=== PATIENT | male | born 1955 | race Caucasian/White ===

== ENCOUNTER 2018-11-10 14:11 | Inpatient (IN) | payer BC ==
[~2018-11-10] VITALS: Ht 188 cm; Wt 86.7 kg
--- OUTSIDE RECORDS SUMMARY | 2018-11-10 14:14 | XMS REPORT ---
Author Author [facility] Address Unknown Phone Unavailable Care Team Providers Care Felling Bucking Supervisor Name Role Phone MARIZA AGEE Unavailable Unavailable Payers Payer Name Policy Type Policy Number Effective Date Expiration Date Problems This patient has no known problems. Allergies, Adverse Reactions, Alerts Allergy Name Allergy Type Status Severity Reaction(s) Onset Date Inactive Date Treating Clinician Comments No Known Allergies DA Active U 2018-06-29 00:00:00 Medications This patient has no known medications. Results Test Description Test Time Test Comments Text Results Atomic Results Result Comments CT ABDOMEN/PELVIS WO [place] [address] Patient Name: FELTON TRAN MR #: [id number] : 1955 Age/Sex: 61/M Req #: [id number] Adm Physician: Ordered by: MARIZA AGEE DO Report #: [id number] Location: CT Room/Bed: Procedure: [id number] CT/CT ABDOMEN/PELVIS WO Exam Date: 07/01/17 Exam Time: 1214 REPORT STATUS: Signed PROCEDURE: CT ABDOMEN AND PELVIS WITHOUT CONTRAST TECHNIQUE: The abdomen and pelvis were scanned utilizing a multidetector helical scanner from the diaphragm to the lesser trochanter after the oral administration of dilute Gastrografin. No IV contrast was administered per physician's request. Coronal and sagittal multiplanar reformations were obtained. COMPARISON: None. INDICATIONS: ANEMIA FINDINGS: ABSENCE OF INTRAVENOUS CONTRAST DECREASES SENSITIVITY FOR DETECTION OF FOCAL LESIONS AND VASCULAR PATHOLOGY. LOWER THORAX: Lung bases are clear. Atherosclerotic calcification of the coronary arteries and to a lesser degree thoracic aorta. Small hiatal hernia. Mild circumferential thickening of the distal esophagus (series 2, image 2). HEPATOBILIARY: Diffuse hepatic steatosis. Normal contour. The liver is enlarged, measuring 22 cm in the right midclavicular line. No focal lesions. No biliary ductal dilation. Gallbladder is unremarkable. SPLEEN: Mild splenomegaly, measuring 13.9 cm in AP diameter. PANCREAS: No focal masses or ductal dilatation. ADRENALS: No adrenal nodules. KIDNEYS/URETERS: 2 mm nonobstructing calculus in the mid to inferior aspect of the right kidney (series 2, image 38). No other renal or any ureteral calculi. No hydronephrosis or obstruction. Approximately 2.7 x 2.7 cm fluid density lesion in the lateral interpolar region of the left kidney (series 2 image 38), likely representing a simple cyst. Mild bilateral perinephric stranding. PELVIC ORGANS/BLADDER: Bladder is decompressed, but grossly unremarkable. Prostate is unremarkable. Calcification of the vas deferens. PERITONEUM / RETROPERITONEUM: No free air or fluid. LYMPH NODES: No intra-abdominal, retroperitoneal, pelvic, or inguinal adenopathy. VESSELS: Atherosclerotic calcification of the abdominal aorta and iliac vessels. GI TRACT: No bowel dilation or evidence of obstruction. Prominent fat at the ileocecal valve, likely reflecting lipomatous hypertrophy. Moderate wall thickening involving the ascending and proximal to mid transverse colon, without significant surrounding inflammatory changes. Mild circumferential wall thickening is noted throughout the descending and sigmoid colon, however, the bowel is not fully distended. No intraluminal masses. Scattered diverticula in the ascending, transverse, descending colon, without evidence of diverticulitis. BONES AND SOFT TISSUES: No acute bony abnormalities. Mild degenerative disc changes in the lower lumbosacral spine. Soft tissues are grossly unremarkable. IMPRESSION: 1. moderate wall thickening involving the ascending and proximal to mid transverse colon. Mild circumferential wall thickening noted throughout the descending and sigmoid colon. Although this may be partly due to under distention, other entities such as sequela of inflammatory bowel disease could be considered. No surrounding inflammatory changes are noted in the colon to suggest active infectious or inflammatory colitis. 2. Colonic diverticulosis, without diverticulitis. 3. 2 mm nonobstructing calculus in the mid to inferior aspect of the right kidney. 4. Hepatomegaly with diffuse steatosis. No focal lesions. 5. Mild splenomegaly. Garcia Rice M.D. Dictated by: Garcia Rice M.D. on 07/01/2017 at 13:08 Electronically approved by: Garcia Rice M.D. on 07/01/2017 at 13:08 Dictated By: GARCIA RICE MD 1308 Transcribed By: AVINASH on 07/01/17 1308 COPY TO: MARIZA AGEE DO
[2018-11-10] MEDS ORDERED: SODIUM CHLORIDE 0.9% 1000ML 1,000 ML IV STA (15:45)
[2018-11-10 15:53] LABS: BASOPHILS % 0.3 % (0.0-1.0); EOSINOPHILS # (AUTO) 0.1 (0.0-0.4); HEMATOCRIT 24.4 % (38.2-49.6); HEMOGLOBIN 8.5 g/dL (14.0-18.0); LYMPHOCYTES # (AUTO) 1.6 (1.0-3.2); LYMPHOCYTES % 13.1 % (18.0-39.1); MEAN CORPUSCULAR HEMOGLOBIN 37.1 pg (28-32); MEAN CORPUSCULAR HGB CONC 34.8 g/dL (31-35); MEAN CORPUSCULAR VOLUME 106.6 fL (81-99); MONOCYTES # (AUTO) 0.7 (0.2-0.8); MONOCYTES % 5.6 % (4.4-11.3); NEUTROPHILS % 75.9 % (38.7-80.0); RED BLOOD COUNT 2.29 x10e6/uL (4.3-5.7); RED CELL DISTRIBUTION WIDTH 14.7 % (11.7-14.4)
[2018-11-10 15:54] LABS: PLATELET COUNT 92 x10e3/uL (140-360)
[2018-11-10 15:58] LABS: INR 1.06; PARTIAL THROMBOPLASTIN TIME 33.9 seconds (23.8-35.5); PROTHROMBIN TIME 14.8 seconds (11.9-14.5)
[2018-11-10 16:06] LABS: ALANINE AMINOTRANSFERASE 21 IU/L (0-55); ALBUMIN 3.3 g/dL (3.5-5.0); ALBUMIN/GLOBULIN RATIO 0.8 (0.8-2.0); ALKALINE PHOSPHATASE 216 IU/L (40-150); ANION GAP 24.7 mmol/L (8-16); BLOOD UREA NITROGEN 18 mg/dL (7-26); BUN/CREATININE RATIO 19 (6-25); CALCIUM 9.8 mg/dL (8.4-10.2); CARBON DIOXIDE 17 mmol/L (22-29); CHLORIDE 92 mmol/L (98-107); CREATININE, SERUM 0.95 mg/dL (0.72-1.25); EST GLOMERULAR FILTRATION RATE > 60 ML/MIN (60-); GLUCOSE 93 mg/dL (74-118); LIPASE 188 U/L (8-78); POTASSIUM 3.7 mmol/L (3.5-5.1); SODIUM 130 mmol/L (136-145)
[2018-11-10 16:29] LABS: CREATINE KINASE < 7 IU/L (30-200)
--- NOTE | 2018-11-10 16:48 | Diagnostic Imaging Report ---
A single frontal view of the chest. HISTORY: Nausea, vomiting, weakness, cough COMPARISON: None available. DISCUSSION: Portable technique, limits sensitivity of the exam. The right apex is not entirely included. Multiple overlying monitoring leads. Tubes/Lines: None Lungs and pleura: Mildly low lung volumes result in bibasilar vascular crowding, accentuation of the pulmonary interstitial markings, central pulmonary vasculature, and the cardiac silhouette. Allowing for these limitations, the findings are as follows: No evidence of a consolidative pneumonia or pulmonary alveolar edema. No definite pleural effusion or pneumothorax is identified. Heart and mediastinum: The cardiomediastinal silhouette appears unremarkable. Bones and soft tissues: Appear unremarkable, given this limited exam. IMPRESSION: No acute radiographic abnormality. Signed by: Dr. Lennox Whitney D.O., M.M.M. on 11/10/2018 4:45 PM
[2018-11-10] MEDS ORDERED: SODIUM CHLORIDE 0.9% 1000ML 1,000 ML IV SCH ×3 (16:53→20:30)
[2018-11-10] MEDS ORDERED: LORAZEPAM INJ 2 MG/ML VIAL IV ONE (17:00)
[2018-11-10] MEDS ORDERED: MULTIVITAMINS- 12 INJECTION 10 ML, FOLIC ACID MDV 5 MG, THIAMINE HCL INJ 100 MG in SODI... IV ONE (17:00)
--- NOTE | 2018-11-10 17:08 | NUR ---
IV SITE CLEANED AND RE-TAPED
--- NOTE | 2018-11-10 18:12 | NUR ---
pt straight cath'd for urine sample per Dr Choe @ [id number]
[2018-11-10 18:25] LABS: CLARITY,URINE CLOUDY (CLEAR); COLOR,URINE AMBER (YELLOW); KETONES,URINE 1+ (NEGATIVE); LEUKOCYTE ESTERASE ,URINE NEGATIVE (NEGATIVE); NITRITE,URINE POSITIVE (NEGATIVE); PROTEIN,URINE DIPSTICK 1+ (NEGATIVE); URINE UROBILINOGEN 8 mg/dL (0.2 - 1)
[2018-11-10 18:26] LABS: BILIRUBIN,URINE 3+ (NEGATIVE)
[2018-11-10 18:39] LABS: AMORPHOUS SEDIMENT,URINE MODERATE (FEW); BACTERIA,URINE MODERATE /HPF
[2018-11-10] MEDS ORDERED: SODIUM CHLORIDE 0.9% 50ML 50 ML ONE (19:51)
[2018-11-10] MEDS ORDERED: IOPAMIDOL 370 MG/ML 200 ML INFUS..BTL INJ ONE (19:51)
[2018-11-10] MEDS: CEFTRIAXONE SOD 1 GM/NS 50 ML 50 ML IV SCH (19:54)
[2018-11-10 20:00] VITALS: BP 116/59
--- NOTE | 2018-11-10 20:15 | Diagnostic Imaging Report ---
EXAM: CT Abdomen and Pelvis WITH contrast INDICATION: Nausea COMPARISON: None. TECHNIQUE: Abdomen and Pelvis was scanned utilizing a multidetector helical scanner after administration of IV contrast. Coronal and sagittal reformations were obtained. IV CONTRAST: 100 mL Isovue-370 COMPLICATIONS: None RADIATION DOSE: Total DLP:789 mGy*cm Estimated effective dose: (DLP x 0.015 x size factor) mSv CTDIvol has been reviewed. It is below the limits set by the Radiation Protocol Committee (RPC). Appropriate CT dose reduction techniques were utilized. FINDINGS: Abdomen: Lung Bases: No acute findings. Solid Organs: Mild hepatic steatosis. Calcified gallstones. Best seen on coronal images is ill-defined stranding about the superior and inferior right kidney. Tiny nonobstructing calculus present in the right kidney with no ureteral calculus identified. There is a 26 mm hypodense lesion left kidney with Hounsfield units 17 and mild surrounding stranding. Smaller hypodensity superior left kidney too small to characterize. Solid organs otherwise unremarkable. Upper GI Tract: Moderate hiatal hernia with some herniation of mesenteric fat into the chest. Vascularity: Vascular calcifications with no aneurysm aorta. Lymph Nodes: No suspicious adenopathy. Other: None. Pelvis: Bladder: Decompressed limiting evaluation. Other: Vasectomy clips partially visualized. Colon: Scattered areas of wall thickening in the colon likely decompression. Correlation with age appropriate colonoscopy recommended, however. Appendix not inflamed. Bones: No acute findings. IMPRESSION: 1. 26 mm indeterminate lesion left kidney. Follow-up renal ultrasound recommended. 2. Nonobstructing calculus right kidney. 3. Mild perinephric stranding may be senescent. Infectious process not excluded. Clinical and laboratory correlation recommended. 4. Cholelithiasis with no distinct CT evidence of cholecystitis. 5. Moderate hiatal hernia. 6. Other findings as above. Signed by: Dr. Toni Bower MD on 11/10/2018 8:11 PM
[2018-11-10 20:44] VITALS: BP 116/59
--- NOTE | 2018-11-10 20:44 | NUR ---
PT ARRIVING ON UNIT VIA STRETCHER WITH FAMILY AT SIDE, ALERT AND ORIENTED, NO DISTRESS NOTED, DENIES NEEDS, IV INFUSING PER ORDER, CALL LIGHT IN REACH, INSTRUCTED TO CALL WITH NEEDS, TELEMETRY NOTED, URINAL IN REACH
[2018-11-10 21:00] VITALS: BP 116/59
[2018-11-11] VITALS (7 sets, daily range): BP systolic 95–130; BP diastolic 60–72
[2018-11-11 06:58] LABS: BASOPHILS % 0.5 % (0.0-1.0); EOSINOPHILS # (AUTO) 0.1 (0.0-0.4); EOSINOPHILS % 1.4 % (0.0-6.0); LYMPHOCYTES # (AUTO) 0.8 (1.0-3.2); LYMPHOCYTES % 19.3 % (18.0-39.1); MEAN CORPUSCULAR HEMOGLOBIN 36.3 pg (28-32); MEAN CORPUSCULAR HGB CONC 34.1 g/dL (31-35); MEAN CORPUSCULAR VOLUME 106.3 fL (81-99); MONOCYTES # (AUTO) 0.4 (0.2-0.8); MONOCYTES % 9.2 % (4.4-11.3); NEUTROPHILS # (AUTO) 2.8 (2.1-6.9); NEUTROPHILS % 67.2 % (38.7-80.0)
[2018-11-11 07:07] LABS: HEMOGLOBIN 5.8 g/dL (14.0-18.0); PLATELET COUNT 48 x10e3/uL (140-360)
[2018-11-11 07:23] LABS: ALANINE AMINOTRANSFERASE 14 IU/L (0-55); ALBUMIN 2.4 g/dL (3.5-5.0); ALBUMIN/GLOBULIN RATIO 0.9 (0.8-2.0); ALKALINE PHOSPHATASE 148 IU/L (40-150); ANION GAP 18.3 mmol/L (8-16); BLOOD UREA NITROGEN 15 mg/dL (7-26); BUN/CREATININE RATIO 19 (6-25); CARBON DIOXIDE 19 mmol/L (22-29); CHLORIDE 96 mmol/L (98-107); CREATININE, SERUM 0.81 mg/dL (0.72-1.25); EST GLOMERULAR FILTRATION RATE > 60 ML/MIN (60-); GLUCOSE 63 mg/dL (74-118); PHOSPHORUS 2.7 MG/DL (2.3-4.7); POTASSIUM 3.3 mmol/L (3.5-5.1); SODIUM 130 mmol/L (136-145)
--- NOTE | 2018-11-11 07:43 | NUR ---
Received call from lab to report critical hgb 5.8 and mag level 1.0. These results are a redraw. Pt denies any bleeding in stool and urine. No bleeding noted at this time during physical assessment. Denies any shortness of breath. Abdomen is soft and nontender. V/S 111/66 P-95(SR) T-97.5, R-18 O2 sat-98. Dr. Smith has been paged and waiting for call back at this time. Pt states he noted bloody stool last month.
[2018-11-11] MEDS ORDERED: SODIUM CHLORIDE 0.9% 250ML 250 ML IV ONE (08:00)
[2018-11-11] MEDS ORDERED: MAGNESIUM SULFATE 2GM/50ML 50 ML IV ONE (08:30)
--- NOTE | 2018-11-11 08:30 | NUR ---
Spoke with Dr. Smith and received orders to transfuse 2units PRBC and give mag 2g iv x1.
[2018-11-11 08:49] LABS: ANISOCYTOSIS SLIGHT; HYPOCHROMASIA MARKED; PLATELET ESTIMATE MARKEDLY DECREASED; PLATELET MORPHOLOGY COMMENT NORMAL; RBC MORPHOLOGY COMMENT NORMAL
[2018-11-11 08:50] LABS: TOXIC GRANULATION SLIGHT
[2018-11-11] MEDS ORDERED: MULTIVITAMINS- 12 INJECTION 10 ML, FOLIC ACID MDV 5 MG, THIAMINE HCL INJ 100 MG in SODI... IV ONE ×2 (09:00→10:45)
[2018-11-11 09:40] LABS: IRON 95 ug/dL (65-175); TRANSFERRIN < 70 mg/dL (174-364)
[2018-11-11 10:01] LABS: FREE THYROXINE INDEX 1.8581 (1.4-3.8); THYROID STIMULATING HORMONE 2.518 uIU/mL (0.350-4.940)
[2018-11-11 11:26] LABS: % IRON SATURATION 116 % (15-50); TOTAL IRON BINDING CAPACITY 83 ug/dL (261-478)
--- NOTE | 2018-11-11 11:48 | Diagnostic Imaging Report ---
EXAMINATION: Renal ultrasound. CLINICAL HISTORY :Pancreatitis COMPARISON: <None available.> TECHNIQUE: Grayscale and color Doppler evaluation of the kidneys and bladder was performed in transverse and longitudinal planes. DISCUSSION: RIGHT KIDNEY: The right kidney measures 12.5 cm in length and shows normal echogenicity. No hydronephrosis. 0.4 cm echogenic focus with shadowing interpolar region. No cyst or solid mass. LEFT KIDNEY: The left kidney measures 4.9 cm in length and shows normal echogenicity. No hydronephrosis or calculi. No mass. 3 cm interpolar simple cyst and 0.8 cm simple interpolar cyst. BLADDER: Unremarkable. IMPRESSION: 1. Normal renal echogenicity. No obstruction 2. Right renal 0.4 cm calculus 3. Simple left renal cyst. Signed by: Dr. Fran Montero M.D. on 11/11/2018 11:45 AM
--- NOTE | 2018-11-11 13:26 | Consultation ---
DATE OF CONSULTATION: November 11, 2018 HEMATOLOGY-ONCOLOGY CONSULTATION REQUESTING PHYSICIAN: Dr. Don Smith. HISTORY OF PRESENT ILLNESS: Mr. Bailon is a 62-year-old male who was referred to me for evaluation of anemia. The patient claims that he had hematochezia approximately two months back. The patient presents with weakness, shortness of breath, slight confusion. HISTORY OF PAST ILLNESS: The patient is very well known to me since July 05, 2017, when the patient was referred to me by Dr. Ap Gilman for evaluation of low platelet count. CBC dated June 29, 2017, showed a hemoglobin of 13.1, white count of 6400, platelets of 85,000, bilirubin high at 3.4, SGOT high at 69. Patient claims that he had "slight anemia of the counts." A CAT scan dated July 01, 2017, showed moderate wall thickening involving the ascending and proximal transverse colon, colonic diverticulosis, a 2 mm nonobstructing calculus, hepatomegaly with diffuse steatosis. There were no focal lesions. Subsequently the patient was suggested to change the social behavior as he was heading toward cirrhosis. The patient related that he used to drink "a fifth a day." I had also suggested the possibility of bone marrow. I had personally called Dr. Viktoria Smith for EGD as I suspected cirrhosis and a colonoscopy due to abnormal CAT scan findings. I do not think the patient had shown up. The patient was due to come back to my office on July 08, 2017. However, when the staff called that he needs to come in or to reschedule, he said, "Things came up. I will call back." At that time the staff requested for the patient to schedule in two weeks. Patient declined the rescheduling. SOCIAL HISTORY: History of excessive alcohol intake. FAMILY HISTORY: Noncontributory. ALLERGIES REPORTED: NONE. MEDICATIONS: At this time, IV fluids. REVIEW OF SYSTEMS HEENT: Normal. CARDIAC: Normal. RESPIRATORY: Normal. GASTROINTESTINAL: Cirrhotic liver. Gallstones. GENITOURINARY: Normal. MUSCULOSKELETAL: Normal. SKIN AND BREASTS: Normal. NEUROENDOCRINE: Essentially normal. PHYSICAL EXAMINATION GENERAL: A moderately built male, very anemic, very jaundiced. No palpable adenopathy. HEART: Tachycardic. LUNGS: Clear. SKIN: The patient has spider angioma. ABDOMEN: Obese. RECTAL: Deferred. CENTRAL NERVOUS SYSTEM: Essentially normal. LABS: Sodium 130, potassium 3.3, chloride is 96, CO2 19, BUN 15, creatinine 0.8, glucose 53. Hemoglobin of 5.8, hematocrit of around 17, white count of 4150, platelets of 48. INR 1.06. Bilirubin 4.1, SGOT 41, SGPT 14, alkaline phosphatase 148. IMPRESSION 1. Anemia, megaloblastic (mean corpuscular volume 106.6). 2. Thrombocytopenia. 3. Hyponatremia (130). 4. Hypokalemia (3.3). 5. Hyperbilirubinemia (5.8). 6. Hypoalbuminemia (3.3). 7. 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 8. Hypocalcemia (8.0). 9. Lactic acidosis (32.8). 10. Calculus of the right kidney. 11. Gallstones. 12. Hiatus hernia. 13. Hepatic steatosis, suspect cirrhosis. 14. Hepatic encephalopathy with a high ammonia more than 100. PLAN, COMMENTS AND SUGGESTIONS: Suggest blood. Suggest EGD, colonoscopy. Suggest change in behavior. This was discussed at length with the patient, the and the son. I will confine myself to hematology-oncology. Job#: [id number] EV cc:MD VIKTORIA ARORA MD DONALD METZ, DO
[2018-11-11] MEDS ORDERED: SODIUM CHLORIDE 0.9% 250ML 250 ML ONE (13:36)
[2018-11-11] MEDS: LORAZEPAM INJ 2 MG/ML VIAL IV PRN ×2 (13:50→21:55)
--- NOTE | 2018-11-11 15:37 | NUR ---
Nutrition Intervention Note RD Recommendation(s) for Physician: -Continue cardiac diet as ordered -Rec Ensure compact BID due to hx of weight loss Plan of Care: RD following, monitoring for tolerance and adequacy, ONS rec Nutrition reason for involvement: Nutrition Risk Trigger MST RD Assessment 11/11 Chart reviewed. 62yo M, who is admitted for anemia. Visited pt in the room. Per , pt has been eating very little for the last 3 weeks. Pt reported UBW ~240lbs 2 years ago and continued to lose weight. Unknown # in weight loss. No GI complains at this time. LBM 11/09. RN recorded 75-100% meal intake since admission. Pt denied any chewing or swallowing issue. Will continue to monitor and follow. Principal Problems/Diagnoses: anemia, thrombocytopenia PMH: excessive alcohol intake GI: abdomen soft, non-tender, LBM 11/09 Skin: intact, jaundice Labs: (11/11) Na 130 L, K 3.3 L, Glucose 63 L, Ca 8.0 L, Mg 1.0 L Meds: MVi, folic acid, thiamine, IVF Ht: 74in Wt: 188lb BMI: 24.1kg/m2 IBW: 190lb Malnutrition Evaluation (11/11/2018) The patient does not meet criteria for a specified degree of malnutrition at this time. Will re-evaluate at follow-up as appropriate. Energy intake: <75% of estimated energy requirements for >1 month Weight loss: Lost weight, unknown # in long period of time Fat loss: some clavicle protrusion Muscle loss: None Supporting Evidence: Fluid accumulation: unable to evaluate Functional Status: no changes Nutrition Prescription (Diet Order): cardiac diet Estimated Nutritional Needs: Calories: 2150 2580kcal(25-30kcal/kg/d) Weight used: Current BW Protein: 86 129g (1-1.5g/kg/d) Weight used: Current BW Diet Adequacy: N/A Diet Education Needs Assessment: Diet education not indicated; patient on regular diet. Nutrition Care Level: low Nutrition Diagnosis: Unintended weight loss related to chronic illness as evidenced by pt reported of UBW ~240lb about 2 years ago and continues to lose weight. Goal: Patient will meet 75-100% of estimated needs by follow up Progress: N/A Interventions: Mineral modified diet, Commercial beverage, Multivitamin/mineral supplement therapy Monitoring/Evaluation: Total energy intake, Total protein intake, Modified diet, Liquid supplement, Weight change Signed: Yulisa Smith, MS, RD, LD
[2018-11-11] MEDS: LACTULOSE SYRUP 20 GM/30 ML UDC PO SCH (17:31)
--- NOTE | 2018-11-11 18:45 | NUR ---
Pt transferred to room 102 and report given to nurse that will be receiving pt.
--- NOTE | 2018-11-11 19:20 | NUR ---
PATIENT RECEIVED. PATIENT IS RESTING IN BED, AAOX3. RESP EVEN AND UNLABORED. NO ACUTE DISTRESS NOTED. PATIENT DENIES OF ANY PAIN OR DISCOMFORT. FAMILY AT BED SIDE. TELE IN PLACE. CALL LIGHT WITHIN REACH. INSTRUCT TO CALL FOR ASSISTANCE. BED LOW/LOCKED. CONTINUE TO MONITOR CLOSELY
--- NOTE | 2018-11-11 20:10 | NUR ---
ASSISTED PATIENT TO RESTROOM VIA WHEELCHAIR.STOOL SAMPLE COLLECTED. HELP PATIENT BACK TO BED. BED ALARM IS ON. CONTINUE TO MONITOR CLOSELY
[2018-11-11] MEDS: CEFTRIAXONE SOD 1 GM/NS 50 ML 50 ML IV SCH (20:23)
[2018-11-11] MEDS ORDERED: PROPRANOLOL HCL 10 MG TAB PO ONE (22:45)
[2018-11-12] VITALS (10 sets, daily range): BP systolic 96–131; BP diastolic 59–76
--- NOTE | 2018-11-12 01:15 | NUR ---
RESPONDED TO BED ALARM. PATIENT WAS USING URINAL AND WET HIMSELF. CHANGE PATIENT AND ASSISTED PATIENT BACK TO BED. OFFERED PATIENT DIAPER BUT PATIENT REFUSED. BED ALARM IS ON. BED LOW/LOCKED. CONTINUE TO MONITOR CLOSELY
--- NOTE | 2018-11-12 01:30 | NUR ---
RESPONDED TO BED ALARM. FOUND PATIENT WAS SITTING ON THE FLOOR. NO INJURY NOTED. ASSISTED PATIENT BACK TO BED. VITAL STABLE TEMP. 96, BP 126/71, HR 76, RR 18, O2 SAT 100%. PATIENT WAS CONFUSED AND DID NOT KNOW WHERE HE WAS. BED ALARM IS ON. SIDE RAIL UP X3.
--- NOTE | 2018-11-12 01:45 | NUR ---
CALLED DR Mine AAMDOR, AWAITING FOR MD TO CALL BACK. NOTIFIED DR Sunni AMADOR. MD ORDERED PRN SITTER. NOTIFIED CHARGE NURSE AND AUTOMATIC SERGING MACHINE OPERATOR
--- NOTE | 2018-11-12 02:00 | NUR ---
NOTIFIED DAUGHTER LOUIE NEIGHBORS ABOUT PATIENT'S STATUS. DAUGHTER SAID SHE WOULD COME VISIT PATIENT TODAY
--- NOTE | 2018-11-12 03:20 | NUR ---
DR DOYLE RETURNED CALL. NO NEW ORDER RECEIVED
--- NOTE | 2018-11-12 04:45 | NUR ---
PATIENT RESTING QUIETLY IN BED. RESP EVEN AND UNLABORED. NO ACUTE DISTRESS NOTED. SITTER AT BED SIDE. CONTINUE MONITOR CLOSELY
[2018-11-12 05:44] LABS: BASOPHILS % 0.7 % (0.0-1.0); LYMPHOCYTES # (AUTO) 0.6 (1.0-3.2); MEAN CORPUSCULAR HEMOGLOBIN 35.7 pg (28-32); MEAN CORPUSCULAR HGB CONC 35.9 g/dL (31-35); MEAN CORPUSCULAR VOLUME 99.5 fL (81-99); MONOCYTES # (AUTO) 0.3 (0.2-0.8); MONOCYTES % 11.4 % (4.4-11.3); NEUTROPHILS # (AUTO) 1.8 (2.1-6.9); NEUTROPHILS % 61.4 % (38.7-80.0); RED BLOOD COUNT 1.96 x10e6/uL (4.3-5.7); RED CELL DISTRIBUTION WIDTH 18.7 % (11.7-14.4)
[2018-11-12 05:51] LABS: HEMATOCRIT 19.5 % (38.2-49.6); PLATELET COUNT 46 x10e3/uL (140-360)
[2018-11-12 06:01] LABS: ANION GAP 14.1 mmol/L (8-16); BLOOD UREA NITROGEN 10 mg/dL (7-26); BUN/CREATININE RATIO 14 (6-25); CALCIUM 8.2 mg/dL (8.4-10.2); CARBON DIOXIDE 20 mmol/L (22-29); CHLORIDE 102 mmol/L (98-107); CREATININE, SERUM 0.71 mg/dL (0.72-1.25); EST GLOMERULAR FILTRATION RATE > 60 ML/MIN (60-); GLUCOSE 88 mg/dL (74-118); POTASSIUM 3.1 mmol/L (3.5-5.1); SODIUM 133 mmol/L (136-145)
[2018-11-12 07:45] LABS: LYMPHOCYTES % (MANUAL) 23 % (19-48); MONOCYTES % (MANUAL) 10 % (3.4-9.0); NEUTROPHILS % (MANUAL) 67 % (40-74); PLATELET ESTIMATE MODERATELY DECREASED; PLATELET MORPHOLOGY COMMENT NORMAL; RBC MORPHOLOGY COMMENT NORMAL
[2018-11-12] MEDS: PROPRANOLOL HCL 10 MG TAB PO SCH ×2 (09:00→17:27)
[2018-11-12] MEDS: MULTIVITAMINS- 12 INJECTION 10 ML, FOLIC ACID MDV 5 MG, THIAMINE HCL INJ 100 MG in SODI... IV SCH ×2 (09:08→21:00)
[2018-11-12] MEDS: LACTULOSE SYRUP 20 GM/30 ML UDC PO SCH ×2 (09:47→17:26)
[2018-11-12] MEDS ORDERED: POTASSIUM CHLORIDE 10MEQ EA PO ONE ×2 (12:00→14:00)
[2018-11-12] MEDS ORDERED: POTASSIUM CHLORIDE 20 MEQ TAB CR PO ONE (12:30)
--- NOTE | 2018-11-12 20:00 | NUR ---
Received change of shift report from AM nurse. Walking rounds completed.
[2018-11-12] MEDS: CEFTRIAXONE SOD 1 GM/NS 50 ML 50 ML IV SCH (20:55)
[2018-11-13] VITALS (7 sets, daily range): BP systolic 107–134; BP diastolic 68–81
--- NOTE | 2018-11-13 01:00 | NUR ---
Dr Smith on the floor to see patient. Orders received for npo after breakfast.
--- NOTE | 2018-11-13 05:00 | NUR ---
IV leaking, restarted 22G to right hand. x1 stick. Patient tolerated well.
--- NOTE | 2018-11-13 06:05 | NUR ---
Patient resting quitly in bed with no c/o at this time. Continue monitor.
[2018-11-13 06:07] LABS: BASOPHILS % 0.6 % (0.0-1.0); EOSINOPHILS % 1.2 % (0.0-6.0); LYMPHOCYTES # (AUTO) 0.7 (1.0-3.2); LYMPHOCYTES % 21.1 % (18.0-39.1); MEAN CORPUSCULAR HGB CONC 33.5 g/dL (31-35); MEAN CORPUSCULAR VOLUME 104.5 fL (81-99); MONOCYTES # (AUTO) 0.4 (0.2-0.8); MONOCYTES % 11.1 % (4.4-11.3); NEUTROPHILS # (AUTO) 2.1 (2.1-6.9); NEUTROPHILS % 63.6 % (38.7-80.0); RED CELL DISTRIBUTION WIDTH 19.3 % (11.7-14.4)
[2018-11-13 06:11] LABS: PLATELET COUNT 43 x10e3/uL (140-360)
[2018-11-13 06:12] LABS: HEMATOCRIT 20.9 % (38.2-49.6)
[2018-11-13] MEDS ORDERED: PEG (High)/E-LYTE SOLN 4,000 ML BTL PO ONE ×3 (06:30→17:15)
[2018-11-13 06:33] LABS: ALANINE AMINOTRANSFERASE 27 IU/L (0-55); ALBUMIN 2.4 g/dL (3.5-5.0); ALBUMIN/GLOBULIN RATIO 0.8 (0.8-2.0); ALKALINE PHOSPHATASE 179 IU/L (40-150); ANION GAP 13.7 mmol/L (8-16); BLOOD UREA NITROGEN 7 mg/dL (7-26); BUN/CREATININE RATIO 10 (6-25); CALCIUM 8.5 mg/dL (8.4-10.2); CARBON DIOXIDE 19 mmol/L (22-29); CHLORIDE 106 mmol/L (98-107); CREATININE, SERUM 0.73 mg/dL (0.72-1.25); EST GLOMERULAR FILTRATION RATE > 60 ML/MIN (60-); GLUCOSE 99 mg/dL (74-118); POTASSIUM 3.7 mmol/L (3.5-5.1); SODIUM 135 mmol/L (136-145)
--- NOTE | 2018-11-13 07:02 | NUR ---
Received patient mid fowlers position, side rails upx2, call light within reach, daughter at bedside. Resting with eyes close. Arousable to verbal stimuli. Respirations even and unlabored. Will continue to monitor.
[2018-11-13] MEDS ORDERED: SODIUM CHLORIDE 0.9% 250ML 250 ML ONE ×3 (09:11→15:29)
[2018-11-13] MEDS: PROPRANOLOL HCL 10 MG TAB PO SCH ×2 (09:23→17:00)
[2018-11-13] MEDS: CEFTRIAXONE SOD 1 GM/NS 50 ML 50 ML IV SCH ×2 (09:23→21:31)
[2018-11-13] MEDS ORDERED: MORPHINE SULFATE INJ 4 MG/ML INJ 1ML IV ONE (11:00)
[2018-11-13] MEDS: LACTULOSE SYRUP 20 GM/30 ML UDC PO SCH ×2 (11:19→17:00)
[2018-11-13] MEDS ORDERED: FUROSEMIDE INJ 10 MG/ML 4 ML VIAL IV ONE (11:30)
[2018-11-13] MEDS ORDERED: SODIUM CHLORIDE 0.9% 250ML 250 ML IV ONE (11:30)
[2018-11-13] MEDS: MULTIVITAMINS- 12 INJECTION 10 ML, FOLIC ACID MDV 5 MG, THIAMINE HCL INJ 100 MG in SODI... IV SCH (18:45)
--- NOTE | 2018-11-13 19:19 | NUR ---
Report given to oncoming nurse. No s/s of acute distress noted.
--- NOTE | 2018-11-13 20:40 | NUR ---
PATIENT ASSISTED TO THE BEDSIDE COMMODE, HE HAD MODERATE AMOUNT OF BROWN LOOSE STOOL. HE'S NOW BACK IN BED WITH CALL LIGHT WITHIN EASY REACH.
[2018-11-14] VITALS (7 sets, daily range): BP systolic 108–128; BP diastolic 62–78
--- NOTE | 2018-11-14 00:20 | NUR ---
PATIENT IS ASLEEP WITH HIS IN THE BED, HE'S EASY TO AROUSE. DR Ingrid AMADOR SAW THE PATIENT, HE DISCUSSED WITH THE PATIENT PLAN FOR EGD/COLONOSCOPY TOMORROW AFTERNOON.
--- NOTE | 2018-11-14 04:36 | NUR ---
PATIENT ASSISTED WITH ADLS, NO RESPIRATORY DISTRESS, HE DENIES PAIN. CALL LIGHT WITHIN EASY REACH, INSTRUCTED TO CALL FOR ASSISTANCE NEEDED.
[2018-11-14 05:59] LABS: BASOPHILS % 0.9 % (0.0-1.0); EOSINOPHILS # (AUTO) 0.1 (0.0-0.4); EOSINOPHILS % 1.1 % (0.0-6.0); HEMATOCRIT 25.3 % (38.2-49.6); HEMOGLOBIN 9.2 g/dL (14.0-18.0); LYMPHOCYTES # (AUTO) 0.8 (1.0-3.2); LYMPHOCYTES % 17.8 % (18.0-39.1); MEAN CORPUSCULAR HEMOGLOBIN 35.5 pg (28-32); MEAN CORPUSCULAR HGB CONC 36.4 g/dL (31-35); MEAN CORPUSCULAR VOLUME 97.7 fL (81-99); MONOCYTES # (AUTO) 0.5 (0.2-0.8); MONOCYTES % 10.7 % (4.4-11.3); NEUTROPHILS # (AUTO) 3.1 (2.1-6.9); NEUTROPHILS % 67.3 % (38.7-80.0); RED BLOOD COUNT 2.59 x10e6/uL (4.3-5.7); RED CELL DISTRIBUTION WIDTH 20.2 % (11.7-14.4)
[2018-11-14 06:01] LABS: PLATELET COUNT 45 x10e3/uL (140-360)
[2018-11-14 06:07] LABS: ALANINE AMINOTRANSFERASE 30 IU/L (0-55); ALBUMIN 2.4 g/dL (3.5-5.0); ALBUMIN/GLOBULIN RATIO 0.9 (0.8-2.0); ALKALINE PHOSPHATASE 166 IU/L (40-150); ANION GAP 14.2 mmol/L (8-16); BLOOD UREA NITROGEN 5 mg/dL (7-26); BUN/CREATININE RATIO 7 (6-25); CALCIUM 8.2 mg/dL (8.4-10.2); CARBON DIOXIDE 18 mmol/L (22-29); CHLORIDE 108 mmol/L (98-107); CREATININE, SERUM 0.68 mg/dL (0.72-1.25); EST GLOMERULAR FILTRATION RATE > 60 ML/MIN (60-); GLUCOSE 90 mg/dL (74-118); POTASSIUM 3.2 mmol/L (3.5-5.1); SODIUM 137 mmol/L (136-145)
[2018-11-14] MEDS: MULTIVITAMINS- 12 INJECTION 10 ML, FOLIC ACID MDV 5 MG, THIAMINE HCL INJ 100 MG in SODI... IV SCH ×2 (06:30→16:44)
--- NOTE | 2018-11-14 06:35 | NUR ---
CALL PLACED TO DR Ingrid AMADOR REGARDING ABNORMAL LAB RESULTS, AWAITING CALL BACK FROM THE DOCTOR.
[2018-11-14 07:00] LABS: INR 1.26; PROTHROMBIN TIME 16.9 seconds (11.9-14.5)
[2018-11-14] MEDS ORDERED: POTASSIUM CHLORIDE 20 MEQ TAB CR PO NR ×2 (07:15→07:45)
--- NOTE | 2018-11-14 07:32 | NUR ---
call placed to Dr. Mine Smith to inform of critical lab of mag 0.8
[2018-11-14 07:52] LABS: ANISOCYTOSIS SLIGHT; EOSINOPHILS % (MANUAL) 2 % (0-7); LYMPHOCYTES % (MANUAL) 14 % (19-48); METAMYELOCYTES % (MANUAL) 1 % (0-0); MONOCYTES % (MANUAL) 6 % (3.4-9.0); NEUTROPHILS % (MANUAL) 77 % (40-74); PLATELET ESTIMATE MARKEDLY DECREASED; PLATELET MORPHOLOGY COMMENT NORMAL; RBC MORPHOLOGY COMMENT ABNORMAL
[2018-11-14] MEDS ORDERED: MAGNESIUM SULFATE 2GM/50ML 50 ML IV ONE (08:00)
[2018-11-14] MEDS: LACTULOSE SYRUP 20 GM/30 ML UDC PO SCH ×2 (09:00→18:21)
[2018-11-14] MEDS: PROPRANOLOL HCL 10 MG TAB PO SCH ×2 (09:00→16:44)
[2018-11-14] MEDS ORDERED: POTASSIUM CHLORIDE 10MEQ EA PO NR (10:00)
[2018-11-14] MEDS: CEFTRIAXONE SOD 1 GM/NS 50 ML 50 ML IV SCH ×2 (10:00→21:39)
--- NOTE | 2018-11-14 10:06 | NUR ---
CASE MANAGEMENT INITIAL ASSESSMENT Rn Icu to bedside to discuss plan of care with patient/family. CM/SW role and care transitions discussed. Anticipated discharge plan discussed along with duration of care. CM/SW discussed patients right to make decisions in care. CM/SW work hours given. Patient lives: alone Admit/Transfer: thru ED Hospital/ER visits since last admit: stated this is the first time he has been hospitalized POA/Emergency contact: Arsh Bailon [phone] Current/Previous Home Health: none PCP/Follow-up Care: Dr. Duong Smith Current/Previous DME: none; states he is independent with needs Medications (referring to index hospitalization or the first time you were in the hospital) a. Were changes made in your medications when you were in the hospital on [date of index hospitalization]? n/a b. Did you understand the changes? n/a c. Were you able to obtain your new medications right away? n/a d. Were you able to take your medications like the doctor wanted you to? n/a e. Did the hospital give you an accurate, easy to understand list of medications when you left? n/a Scale of 1-10 how comfortable does patient feel with disease management in outpatient setting: Other Services: none Employment Status: retired in last 6 months Areas of Concerns: pancreatitis Referral Needs: none Education Needs: medical management IMM/JOHNSON given and signed (if applicable): n/a Goal for discharge: return home independently CM/SW left business card at the bedside with contact information. Name and number was also written on the patients whiteboard. Patient verbalized understanding of discussion. CM will follow-up with ongoing discharge and transition of care needs.
--- NOTE | 2018-11-14 11:30 | NUR ---
Dr. Sunni Smith made aware that patient has not had platelets yet because platelets are not yet available; checked with blood bank. Blood bank will call once platelets is ready.
[2018-11-14] MEDS ORDERED: SODIUM CHLORIDE 0.9% 250ML 250 ML ONE (12:09)
--- NOTE | 2018-11-14 19:01 | NUR ---
PT NOT TO HAVE PLATELET TRANSFUSION UNTIL 1 HOUR BEFORE PROCEDURE
--- NOTE | 2018-11-14 20:20 | NUR ---
SPOKE TO DR. Sunni AMADOR AT THIS TIME. NEW ORDER RCV FOR MAGNESIUM CITRATE AT 2300 AND 0500.
[2018-11-14] MEDS ORDERED: PHYTONADIONE 10 MG/ML AMP SQ STA (21:56)
[2018-11-14] MEDS ORDERED: CITRATE OF MAGNESIA 300ML BOTTLE PO NR (23:00)
[2018-11-15] VITALS (7 sets, daily range): BP systolic 109–144; BP diastolic 64–81
--- NOTE | 2018-11-15 00:38 | NUR ---
DR. Sunni AMADOR DOING ROUNDS AT THIS TIME. NEW ORDER RCV TO CANCEL 0500 MAGNESIUM CITRATE. Addendum: 11/15/18 at 0307 by Denis Marie RN PT CAN HAVE WATER UNTIL [address] Sunni AMADOR
[2018-11-15] MEDS: MULTIVITAMINS- 12 INJECTION 10 ML, FOLIC ACID MDV 5 MG, THIAMINE HCL INJ 100 MG in SODI... IV SCH ×3 (02:52→18:17)
[2018-11-15] MEDS ORDERED: CITRATE OF MAGNESIA 300ML BOTTLE PO NR (05:00)
[2018-11-15 06:17] LABS: ALANINE AMINOTRANSFERASE 33 IU/L (0-55); ALBUMIN 2.2 g/dL (3.5-5.0); ALBUMIN/GLOBULIN RATIO 0.8 (0.8-2.0); ALKALINE PHOSPHATASE 153 IU/L (40-150); ANION GAP 11.6 mmol/L (8-16); BLOOD UREA NITROGEN 6 mg/dL (7-26); BUN/CREATININE RATIO 10 (6-25); CARBON DIOXIDE 16 mmol/L (22-29); CHLORIDE 111 mmol/L (98-107); CREATININE, SERUM 0.61 mg/dL (0.72-1.25); EST GLOMERULAR FILTRATION RATE > 60 ML/MIN (60-); GLUCOSE 89 mg/dL (74-118); POTASSIUM 3.6 mmol/L (3.5-5.1); SODIUM 135 mmol/L (136-145)
[2018-11-15 06:56] LABS: BASOPHILS % 0.7 % (0.0-1.0); EOSINOPHILS # (AUTO) 0.1 (0.0-0.4); EOSINOPHILS % 1.1 % (0.0-6.0); HEMATOCRIT 25.2 % (38.2-49.6); HEMOGLOBIN 8.3 g/dL (14.0-18.0); LYMPHOCYTES # (AUTO) 0.6 (1.0-3.2); LYMPHOCYTES % 13.5 % (18.0-39.1); MEAN CORPUSCULAR HEMOGLOBIN 34.2 pg (28-32); MEAN CORPUSCULAR HGB CONC 32.9 g/dL (31-35); MEAN CORPUSCULAR VOLUME 103.7 fL (81-99); MONOCYTES # (AUTO) 0.4 (0.2-0.8); MONOCYTES % 8.5 % (4.4-11.3); NEUTROPHILS # (AUTO) 3.4 (2.1-6.9); NEUTROPHILS % 74.7 % (38.7-80.0); PLATELET COUNT 59 x10e3/uL (140-360); RED BLOOD COUNT 2.43 x10e6/uL (4.3-5.7); RED CELL DISTRIBUTION WIDTH 20.3 % (11.7-14.4)
--- NOTE | 2018-11-15 07:18 | NUR ---
Rcvd patient in report this am. Patient is asleep in bed at this time. NO s/s of distress noted.
[2018-11-15 08:17] LABS: PLATELET ESTIMATE MODERATELY DECREASED; PLATELET MORPHOLOGY COMMENT NORMAL; RBC MORPHOLOGY COMMENT ABNORMAL
[2018-11-15 08:18] LABS: ANISOCYTOSIS MODERATE
[2018-11-15] MEDS: CEFTRIAXONE SOD 1 GM/NS 50 ML 50 ML IV SCH ×2 (08:44→21:40)
[2018-11-15] MEDS: LACTULOSE SYRUP 20 GM/30 ML UDC PO SCH ×2 (09:00→17:31)
[2018-11-15] MEDS: PROPRANOLOL HCL 10 MG TAB PO SCH ×2 (09:00→17:32)
[2018-11-15] MEDS ORDERED: SODIUM CHLORIDE 0.9% 250ML 250 ML ONE (11:16)
--- NOTE | 2018-11-15 13:18 | NUR ---
Patient went to [facility] at this time.
--- NOTE | 2018-11-15 16:10 | NUR ---
Patient returned from [facility] at this time. Patient is sitting on edge of bed. No s/s of distress noted
--- NOTE | 2018-11-15 16:27 | Operative Report ---
DATE OF PROCEDURE: November 15, 2018 REFERRING PHYSICIAN: Dr. Ap Agee. PROCEDURES PERFORMED 1. Esophagogastroduodenoscopy with biopsies and brushings. 2. Colonoscopy with polypectomy. INDICATIONS FOR ESOPHAGOGASTRODUODENOSCOPY: Anemia. History of melena. INDICATIONS FOR COLONOSCOPY: Anemia, guaiac positive stools. MEDICATION: Patient was done under MAC. Please see anesthesiologist's note. PROCEDURE: With the patient in the left lateral decubitus position, the flexible fiberoptic Olympus gastroscope was introduced into the esophagus under direct visualization without any difficulty. There were some prominent veins noted in the esophagus versus early esophageal varices. Minute tongues of velvety red mucosa were noted to extend proximally from GE junction, and those were brushed rather than biopsied to avoid potentially significant bleeding due to the presence of varices. The scope was then advanced with ease into the stomach, traversing an approximately 4 cm sized hiatal hernia. The mucosa overlying the antrum and the body revealed changes compatible with portal hypertensive gastropathy. The pylorus was of normal contour and shape, was intubated with ease, and the scope was advanced all the way to the 2nd portion of the duodenum. Biopsies were obtained from the proximal 2nd portion and the duodenal bulb to rule out sprue. The scope was then withdrawn back into the stomach and retroflexed, and the previously described hiatal hernia was also noted in the retroflexed position. The scope was then straightened out. It was subsequently withdrawn. Patient tolerated procedure well. IMPRESSION: 1. Grade 1 esophageal varices. 2. Rule out Robertson's esophagus. 3. A 4 cm hiatal hernia. 4. Portal hypertensive gastropathy. 5. Rule out sprue. PLAN: Follow up histology. Initiate Protonix 40 mg 1 p.o. a.c. b.i.d. and start Inderal 10 mg 1 p.o. b.i.d. Patient was then turned around and after adequate lubrication of the anal canal, a flexible fiberoptic Olympus colonoscope was inserted into the rectum with ease and advanced all the way to the cecum. Mucosa overlying the cecum appeared to be within normal limits. An approximately 1.2 cm sessile polypoid lesion was noted in the proximal ascending colon, and that was removed per piecemeal electrocautery and site was hemoclipped. Six polyps were snared from the ascending colon. Three polyps were snared from the transverse and two polyps were snared from the descending. The sigmoid and the rectum grossly appeared to be within normal limits. The scope was then retroflexed into the distal rectum and moderate-sized internal hemorrhoids were noted, none of which was actively bleeding. The scope was then straightened out. It was subsequently withdrawn. Patient tolerated the procedure well. IMPRESSION: 1. Large sessile polyp, proximal ascending colon, approximately 1.2 cm in size, removed per snare electrocautery and polypectomy site was hemoclipped. 2. Ascending colon polyps times 6 removed per snare electrocautery. 3. Transverse colon polyps times 3 removed per snare electrocautery. 4. Descending colon polyps times 2 snared. 5. Internal hemorrhoids, none actively bleeding. PLAN: Follow up histology. A total of 12 polyps were removed. Patient might benefit from a followup colonoscopy in 1 year. Job#: [id number] EV cc:AP AGEE DO
[2018-11-15] MEDS ORDERED: HYOSCYAMINE SULFATE 0.5 MG/ML INJ ONE (17:25)
[2018-11-15] MEDS ORDERED: PROPOFOL IV EMULSION 10 MG/ML 50 ML VIAL ONE (17:25)
[2018-11-16 00:46] VITALS: BP 106/58
[2018-11-16 04:00] VITALS: BP_SYST 128; BP_DIAS 58; BP_DIAS 75
[2018-11-16 05:55] LABS: BASOPHILS % 0.8 % (0.0-1.0); EOSINOPHILS # (AUTO) 0.1 (0.0-0.4); HEMATOCRIT 27.7 % (38.2-49.6); HEMOGLOBIN 8.9 g/dL (14.0-18.0); LYMPHOCYTES # (AUTO) 0.7 (1.0-3.2); LYMPHOCYTES % 14.3 % (18.0-39.1); MEAN CORPUSCULAR HEMOGLOBIN 33.8 pg (28-32); MEAN CORPUSCULAR HGB CONC 32.1 g/dL (31-35); MEAN CORPUSCULAR VOLUME 105.3 fL (81-99); MONOCYTES # (AUTO) 0.5 (0.2-0.8); MONOCYTES % 9.2 % (4.4-11.3); NEUTROPHILS # (AUTO) 3.8 (2.1-6.9); NEUTROPHILS % 73.9 % (38.7-80.0); PLATELET COUNT 77 x10e3/uL (140-360); RED BLOOD COUNT 2.63 x10e6/uL (4.3-5.7); RED CELL DISTRIBUTION WIDTH 20.2 % (11.7-14.4)
[2018-11-16] MEDS: MULTIVITAMINS- 12 INJECTION 10 ML, FOLIC ACID MDV 5 MG, THIAMINE HCL INJ 100 MG in SODI... IV SCH (06:00)
[2018-11-16 06:17] LABS: ANION GAP 13.8 mmol/L (8-16); BLOOD UREA NITROGEN 8 mg/dL (7-26); BUN/CREATININE RATIO 11 (6-25); CALCIUM 8.2 mg/dL (8.4-10.2); CARBON DIOXIDE 16 mmol/L (22-29); CHLORIDE 110 mmol/L (98-107); EST GLOMERULAR FILTRATION RATE > 60 ML/MIN (60-); GLUCOSE 93 mg/dL (74-118); POTASSIUM 3.8 mmol/L (3.5-5.1); SODIUM 136 mmol/L (136-145)
[2018-11-16 08:47] VITALS: BP 131/71
--- NOTE | 2018-11-16 10:30 | NUR ---
Spoke to Dr. Smith regarding discharge plan. States he plans to discharge pt home today if ok with consultants.
[2018-11-16 11:25] VITALS: BP 131/71
[2018-11-16] MEDS: LACTULOSE SYRUP 20 GM/30 ML UDC PO SCH (11:25)
[2018-11-16] MEDS: CEFTRIAXONE SOD 1 GM/NS 50 ML 50 ML IV SCH (11:25)
[2018-11-16] MEDS: PROPRANOLOL HCL 10 MG TAB PO SCH (11:25)
[2018-11-16 11:36] VITALS: BP 131/71
[2018-11-16 12:02] VITALS: BP 127/80
[2018-11-16] MEDS ORDERED: METFORMIN HCL500 MG PO (12:47)
[2018-11-16] MEDS ORDERED: LISINOPRIL10 MG PO (12:47)
[2018-11-16] MEDS ORDERED: LACTULOSE20 GM/30 M PO (12:47)
== END 2018-11-16 15:37 | disposition home or self-care (01) | DRG 369 ==
LOC: ER 14:11 → ERHOLD 16:57 → IMCU 20:44 → OBSVTOIN 11-11 10:57 → MED/SURG 11-11 18:54
PROC: 30233N1 Transfusion of Nonautologous Red Blood Cells into Peripheral Vein, Percutaneous Approach (ICD-10-PCS; 2018-11-11)
PROC: 0DBL8ZX Excision of Transverse Colon, Via Natural or Artificial Opening Endoscopic, Diagnostic (ICD-10-PCS; 2018-11-15)
PROC: 0DBM8ZX Excision of Descending Colon, Via Natural or Artificial Opening Endoscopic, Diagnostic (ICD-10-PCS; 2018-11-15)
PROC: 30233R1 Transfusion of Nonautologous Platelets into Peripheral Vein, Percutaneous Approach (ICD-10-PCS; 2018-11-15)
PROC: 0DD48ZX Extraction of Esophagogastric Junction, Via Natural or Artificial Opening Endoscopic, Diagnostic (ICD-10-PCS; principal; 2018-11-15 13:48)
PROC: 0DD58ZX Extraction of Esophagus, Via Natural or Artificial Opening Endoscopic, Diagnostic (ICD-10-PCS; 2018-11-15 13:48)
PROC: 0DB98ZX Excision of Duodenum, Via Natural or Artificial Opening Endoscopic, Diagnostic (ICD-10-PCS; 2018-11-15 13:48)
PROC: 0DBK8ZX Excision of Ascending Colon, Via Natural or Artificial Opening Endoscopic, Diagnostic (ICD-10-PCS; 2018-11-15 13:48)
DX: I85.00 Esophageal varices without bleeding (principal); E87.1 Hypo-osmolality and hyponatremia; E87.2 Acidosis; K76.6 Portal hypertension; K90.1 Tropical sprue; F10.230 Alcohol dependence with withdrawal, uncomplicated; D61.818 Other pancytopenia; D53.1 Other megaloblastic anemias, not elsewhere classified; D69.6 Thrombocytopenia, unspecified; E87.6 Hypokalemia; E80.6 Other disorders of bilirubin metabolism; E88.09 Other disorders of plasma-protein metabolism, not elsewhere classified; R77.1 Abnormality of globulin; K74.60 Unspecified cirrhosis of liver; E83.51 Hypocalcemia; N20.0 Calculus of kidney; K80.80 Other cholelithiasis without obstruction; K44.9 Diaphragmatic hernia without obstruction or gangrene; K76.0 Fatty (change of) liver, not elsewhere classified; K72.90 Hepatic failure, unspecified without coma; K31.89 Other diseases of stomach and duodenum; K22.70 Barrett's esophagus without dysplasia; K63.5 Polyp of colon; K64.8 Other hemorrhoids; I10 Essential (primary) hypertension; E11.9 Type 2 diabetes mellitus without complications; M19.90 Unspecified osteoarthritis, unspecified site; E78.5 Hyperlipidemia, unspecified; K70.30 Alcoholic cirrhosis of liver without ascites
CPT/HCPCS: 36415; 43235; 43239; 45378; 45385; 71045; 74177; 76770; 80048; 80053; 80320; 81001; 82140; 82270; 82550; 82553; 82607; 82746; 82948; 83540; 83605; 83690; 83735; 84100; 84132; 84436; 84443; 84466; 84479; 84484; 85025; 85045; 85610; 85730; 86850; 86900; 86920; 88112; 88305; 88312; 88313; 93005; 93306; 96365; 96367; 96375; 99284; G0378; J0696; J1940; J1980; J2060; J2270; J3411; J3430; J3475; J7030; J7050; P9016; P9034; Q9967

== ENCOUNTER 2019-02-20 15:27 | Inpatient (IN) | payer BC ==
[~2019-02-20] VITALS: Ht 188 cm; Wt 95.8 kg
[~2019-02-20 15:27] MED LIST: LACTULOSE20 GM/30 M PO; LISINOPRIL10 MG PO; METFORMIN HCL500 MG PO
[2019-02-20 16:13] LABS: BASOPHILS % 0.5 % (0.0-1.0); EOSINOPHILS # (AUTO) 0.1 (0.0-0.4); EOSINOPHILS % 1.1 % (0.0-6.0); HEMATOCRIT 22.2 % (38.2-49.6); HEMOGLOBIN 7.5 g/dL (14.0-18.0); LYMPHOCYTES # (AUTO) 1.6 (1.0-3.2); LYMPHOCYTES % 21.8 % (18.0-39.1); MEAN CORPUSCULAR HEMOGLOBIN 33.8 pg (28-32); MEAN CORPUSCULAR HGB CONC 33.8 g/dL (31-35); MONOCYTES # (AUTO) 0.6 (0.2-0.8); MONOCYTES % 7.8 % (4.4-11.3); NEUTROPHILS % 67.8 % (38.7-80.0); PLATELET COUNT 106 x10e3/uL (140-360); RED BLOOD COUNT 2.22 x10e6/uL (4.3-5.7); RED CELL DISTRIBUTION WIDTH 15.5 % (11.7-14.4)
[2019-02-20 16:22] LABS: INR 1.33; PROTHROMBIN TIME 17.1 seconds (11.9-14.5)
[2019-02-20 16:23] LABS: PARTIAL THROMBOPLASTIN TIME 38.3 seconds (23.8-35.5)
[2019-02-20 16:32] LABS: ALANINE AMINOTRANSFERASE 11 IU/L (0-55); ALBUMIN 1.8 g/dL (3.5-5.0); ALBUMIN/GLOBULIN RATIO 0.4 (0.8-2.0); ALKALINE PHOSPHATASE 259 IU/L (40-150); ANION GAP 13.1 mmol/L (8-16); BLOOD UREA NITROGEN 17 mg/dL (7-26); BUN/CREATININE RATIO 20 (6-25); CALCIUM 8.3 mg/dL (8.4-10.2); CARBON DIOXIDE 28 mmol/L (22-29); CHLORIDE 97 mmol/L (98-107); CREATINE KINASE 17 IU/L (30-200); CREATININE, SERUM 0.86 mg/dL (0.72-1.25); EST GLOMERULAR FILTRATION RATE > 60 ML/MIN (60-); GLUCOSE 108 mg/dL (74-118); POTASSIUM 3.1 mmol/L (3.5-5.1); SODIUM 135 mmol/L (136-145)
--- NOTE | 2019-02-20 18:44 | Diagnostic Imaging Report ---
EXAMINATION: Abdominal ultrasound. CLINICAL INDICATION: Abdominal pain COMPARISON: Renal ultrasound dated 11/11/2018, CT abdomen/pelvis dated 11/10/2018 DISCUSSION: Transverse and longitudinal images of the upper abdomen were obtained. The liver is slightly enlarged in size measuring 16.2 centimeters in length in the right midclavicular line and shows nodule morphology and increased heterogeneous echogenicity. No focal masses are seen in the liver. There is no intrahepatic biliary dilatation. The common bile duct is normal in caliber measuring 3 mm. The main portal vein is normal in caliber and measures 1.1 mm with normal hepatopetal flow. Stones are seen in the gallbladder without wall thickening or pericholecystic fluid. The sonographic Tillman's sign is negative. The great vessels and pancreas cannot be visualized due to overlying gas. The spleen is normal in echogenicity and size measuring 2 centimeters in length. The right kidney measures 11.8 centimeters in length and the left kidney measures 10.5 centimeters. There is normal renal cortical echogenicity and no hydronephrosis, solid mass or shadowing calculi. Moderate to large volume ascites. IMPRESSION: Cholelithiasis without evidence of acute cholecystitis. Cirrhotic liver morphology with moderate to large volume ascites Signed by: Naveen Avendano MD on 02/20/2019 6:41 PM
[2019-02-20] MEDS ORDERED: ZINC OXIDE/COD LIVER OIL 30 GM TUBE TOP PRN ×2 (20:45→23:15)
[2019-02-20] MEDS ORDERED: SODIUM CHLORIDE FLUSH 10 ML SYR INJ PRN ×2 (20:45→23:15)
[2019-02-20] MEDS ORDERED: CEFTRIAXONE SOD 1 GM VIAL IV ONE (20:45)
[2019-02-20] MEDS ORDERED: LACTULOSE SYRUP 20 GM/30 ML UDC PO PRN ×2 (20:45→23:15)
[2019-02-20] MEDS ORDERED: ZOLPIDEM TARTRATE 5 MG TAB PO PRN (20:45)
[2019-02-20] MEDS ORDERED: DIPHENHYDRAMINE HCL INJ 50 MG/ML VIAL IV PRN ×2 (20:45→23:15)
[2019-02-20] MEDS ORDERED: GABAPENTIN300 MG PO ×3 (21:02→21:04)
[2019-02-20] MEDS ORDERED: CEFTRIAXONE SOD 1 GM/NS 50 ML 50 ML IV ONE (21:15)
--- NOTE | 2019-02-20 21:25 | NUR ---
Arrived to unit per stretcher with friend at side. Transferred to bed. Oriented to environment and call light. Instructed to call for assistance or on the onset of pain or SOB. Will continue to monitor.
[2019-02-20 21:45] VITALS: BP 119/77
[2019-02-20 21:47] VITALS: BP 119/77
[2019-02-20] MEDS: ZOLPIDEM TARTRATE 5 MG TAB PO PRN (23:10)
[2019-02-21] VITALS (7 sets, daily range): BP systolic 113–126; BP diastolic 58–77
--- NOTE | 2019-02-21 | NUR ---
Education provided to have nothing to eat or drink for procedure tomorrow. Patient verbalized understanding.
--- NOTE | 2019-02-21 06:00 | NUR ---
Patient resting in bed. No issues or concerns.Call light within reach. Bed alarm on and working. Will continue to monitor.
--- NOTE | 2019-02-21 07:30 | NUR ---
Patient is resting in bed, no complaints voiced. Call celestin within reach. NPO for paracentesis.
[2019-02-21] MEDS ORDERED: FUROSEMIDE INJ 10 MG/ML 2 ML VIAL IV SCH (09:00)
[2019-02-21] MEDS ORDERED: SPIRONOLACTONE 25 MG TAB PO SCH (09:00)
[2019-02-21] MEDS: SPIRONOLACTONE 25 MG TAB PO SCH (09:00)
[2019-02-21] MEDS ORDERED: PANTOPRAZOLE 40 MG 10ML VIAL IV SCH (09:00)
[2019-02-21] MEDS: PANTOPRAZOLE 40 MG 10ML VIAL IV SCH (09:22)
[2019-02-21] MEDS: FUROSEMIDE INJ 10 MG/ML 2 ML VIAL IV SCH ×2 (09:22→18:00)
--- NOTE | 2019-02-21 13:05 | NUR ---
Patient off unit for Paracentesis.
--- NOTE | 2019-02-21 14:10 | NUR ---
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 Pt discussed during am rounds. 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 Pt denies any GI distress or wt loss, reports fluid gain/ascites recently. Pt and decline low sodium diet education, report that they are aware of what to avoid and have resources at home. Chart reviewed. Labs and meds reviewed. Will monitor and continue to follow. Current Diet: NPO Malnutrition Evaluation (02/21/19) The patient does not meet criteria for a specified degree of malnutrition at this time. Will re-evaluate at follow-up as appropriate. Diet Education Needs Assessment: Diet education indicated, pt declined sodium diet education. Nutrition Care Level: Low Signed: Bita Aj RD, LD, CNSC
--- NOTE | 2019-02-21 14:30 | NUR ---
Patient returned for Paracentesis. Vital signs stable. Call celestin within reach.
--- NOTE | 2019-02-21 14:43 | Diagnostic Imaging Report ---
Date and Time: 02/21/2019 Procedure: Ultrasound-guided paracentesis extrusion line operator: Dr. Camacho Pre-operative diagnosis: Cirrhosis, ascites Post-operative diagnosis: Cirrhosis, ascites Conscious Sedation: None The patient's heart rate and pulse oximetry were continuously monitored by the interventional radiology nurse. Blood pressure was monitored at 5 minute intervals. Additional Medications: Lidocaine 1% for local anesthesia Estimated blood loss: Minimal Blood products administered: None Complications: No immediate Specimens: 7300 cc straw-colored fluid Implants: None DISCUSSION: Informed consent was obtained and documented in the medical record. The patient was placed in the supine position and the right abdominal wall was prepped and draped in standard sterile fashion. A suitable percutaneous approach to the peritoneal space was identified and 1% lidocaine was infiltrated into the skin and subcutaneous tissues for local anesthesia. Then under continuous sonographic guidance a 5 Hungarian Yueh needle catheter was advanced into the ascitic fluid. The needle was removed and the catheter attached to vacuum bottle with subsequent evacuation of 7300 cc straw-colored fluid. The catheter was removed and a sterile dressing was applied. The patient tolerated the procedure well without immediate complication. FINDINGS: Moderate ascites. IMPRESSION: Successful ultrasound-guided paracentesis with evacuation of 7300 cc straw-colored fluid. Signed by: Dr. Joey Camacho M.D. on 02/21/2019 2:40 PM
[2019-02-21] MEDS ORDERED: GABAPENTIN300 MG PO (17:34)
[2019-02-21] MEDS ORDERED: POTASSIUM CHLORIDE 10MEQ EA PO NR (18:00)
--- NOTE | 2019-02-21 19:00 | NUR ---
Report and rounds completed, patient in bed watching TV, No issues or concerns. Site to [facility]. Call light within reach. Will continue to monitor.
[2019-02-21] MEDS: GABAPENTIN 300 MG CAP PO SCH (20:29)
[2019-02-21] MEDS: ZOLPIDEM TARTRATE 5 MG TAB PO PRN (21:17)
[2019-02-22] VITALS (14 sets, daily range): BP systolic 99–138; BP diastolic 57–85
--- NOTE | 2019-02-22 06:02 | NUR ---
Patient in bed drinking coffee, no issues or concern. Call light within reach. Will continue to monitor.
[2019-02-22 07:11] LABS: BLOOD UREA NITROGEN 16 mg/dL (7-26); BUN/CREATININE RATIO 17 (6-25); CARBON DIOXIDE 29 mmol/L (22-29); CHLORIDE 97 mmol/L (98-107); CREATININE, SERUM 0.92 mg/dL (0.72-1.25); EST GLOMERULAR FILTRATION RATE > 60 ML/MIN (60-); GLUCOSE 94 mg/dL (74-118); SODIUM 133 mmol/L (136-145)
[2019-02-22] MEDS: SPIRONOLACTONE 25 MG TAB PO SCH (09:22)
[2019-02-22] MEDS: GABAPENTIN 300 MG CAP PO SCH ×3 (09:22→20:29)
[2019-02-22] MEDS: PANTOPRAZOLE 40 MG 10ML VIAL IV SCH (09:22)
[2019-02-22] MEDS: FUROSEMIDE INJ 10 MG/ML 2 ML VIAL IV SCH ×2 (09:22→16:50)
--- NOTE | 2019-02-22 12:26 | NUR ---
INVESTIGATIONS DIRECTOR REPORTED THAT PATIENT DOES NOT HAVE ENOUGH ABDOMINAL FLUID RETENTION FOR THERAPEUTIC PARACENTESIS SO PROCEDURE WILL BE CANCELLED, CALLED DR. Duong AMADOR REGARDING DIETARY ORDER.
[2019-02-22] MEDS ORDERED: SODIUM CHLORIDE 0.9% 250ML 250 ML IV ONE (13:30)
--- NOTE | 2019-02-22 15:57 | Diagnostic Imaging Report ---
Exam: Limited 4 quadrant abdominal ultrasound History: Cirrhosis with previous paracentesis performed one day prior. Comparison: 02/21/2019 Findings: Ultrasound scanning involving all 4 quadrants of the abdomen shows a minimal amount of fluid today clear around the liver and spleen. No large pocket of fluid is identified to safely perform a paracentesis. Impression: Small amount of abdominal ascites. Signed by: Dr. Sanjeev Boyd DO on 02/22/2019 3:54 PM
[2019-02-22] MEDS: FUROSEMIDE INJ 10 MG/ML 4 ML VIAL IV PRN ×2 (16:50→22:20)
--- NOTE | 2019-02-22 19:00 | NUR ---
Received bedside shift report from dayshift RN. Patient is AOx4. Bed set low, side rails up x2, bed alarm on with call light within reach. Patient reported no pain.
[2019-02-22] MEDS ORDERED: SODIUM CHLORIDE 0.9% 250ML 250 ML ONE (19:25)
[2019-02-22] MEDS: ZOLPIDEM TARTRATE 5 MG TAB PO PRN (22:22)
--- NOTE | 2019-02-22 23:00 | NUR ---
Patient received 1 unit of RBC and tolerated procedure well with no s/s. Continue to monitor the patient.
[2019-02-23] VITALS (8 sets, daily range): BP systolic 118–138; BP diastolic 61–75
[2019-02-23 05:28] LABS: BASOPHILS % 0.4 % (0.0-1.0); EOSINOPHILS # (AUTO) 0.1 (0.0-0.4); EOSINOPHILS % 1.3 % (0.0-6.0); HEMATOCRIT 23.2 % (38.2-49.6); HEMOGLOBIN 7.9 g/dL (14.0-18.0); LYMPHOCYTES # (AUTO) 1.3 (1.0-3.2); MEAN CORPUSCULAR HEMOGLOBIN 32.4 pg (28-32); MEAN CORPUSCULAR HGB CONC 34.1 g/dL (31-35); MEAN CORPUSCULAR VOLUME 95.1 fL (81-99); MONOCYTES # (AUTO) 0.5 (0.2-0.8); MONOCYTES % 10.1 % (4.4-11.3); NEUTROPHILS # (AUTO) 3.3 (2.1-6.9); NEUTROPHILS % 62.6 % (38.7-80.0); PLATELET COUNT 84 x10e3/uL (140-360); RED BLOOD COUNT 2.44 x10e6/uL (4.3-5.7); RED CELL DISTRIBUTION WIDTH 17.2 % (11.7-14.4)
[2019-02-23 05:44] LABS: INR 1.38; PROTHROMBIN TIME 17.6 seconds (11.9-14.5)
[2019-02-23 05:52] LABS: IRON 71 ug/dL (65-175); TRANSFERRIN < 70 mg/dL (174-364)
[2019-02-23 06:15] LABS: FERRITIN 467.76 ng/mL (21.81-274.66)
--- NOTE | 2019-02-23 06:15 | NUR ---
The patient has attempted several times sat up on the side of the bed to use the urinal. The patient displayed weak BUE and BLE which is a high risk for fall. The patient was educated to use the call light for assistance with urinal. Patient is placed in brief and wet pad. Verbalized understanding.
[2019-02-23 06:28] LABS: FOLATE 4.1 ng/mL (7.0-15.4)
[2019-02-23 06:55] LABS: ALANINE AMINOTRANSFERASE 8 IU/L (0-55); ALBUMIN 1.6 g/dL (3.5-5.0); ALBUMIN/GLOBULIN RATIO 0.4 (0.8-2.0); ALKALINE PHOSPHATASE 251 IU/L (40-150); ANION GAP 10.1 mmol/L (8-16); BLOOD UREA NITROGEN 15 mg/dL (7-26); BUN/CREATININE RATIO 19 (6-25); CALCIUM 7.9 mg/dL (8.4-10.2); CARBON DIOXIDE 28 mmol/L (22-29); CHLORIDE 98 mmol/L (98-107); CREATININE, SERUM 0.81 mg/dL (0.72-1.25); EST GLOMERULAR FILTRATION RATE > 60 ML/MIN (60-); GLUCOSE 134 mg/dL (74-118); POTASSIUM 3.1 mmol/L (3.5-5.1); SODIUM 133 mmol/L (136-145)
[2019-02-23] MEDS: SPIRONOLACTONE 25 MG TAB PO SCH ×2 (09:44→17:22)
[2019-02-23] MEDS: PANTOPRAZOLE 40 MG 10ML VIAL IV SCH (09:44)
[2019-02-23] MEDS: FUROSEMIDE INJ 10 MG/ML 4 ML VIAL IV SCH ×2 (09:44→20:21)
[2019-02-23] MEDS: GABAPENTIN 300 MG CAP PO SCH ×3 (09:44→20:21)
[2019-02-23 11:07] LABS: BASOPHILS # (AUTO) 0.1 (0.0-0.1); BASOPHILS % 0.8 % (0.0-1.0); EOSINOPHILS # (AUTO) 0.1 (0.0-0.4); EOSINOPHILS % 1.6 % (0.0-6.0); HEMATOCRIT 24.9 % (38.2-49.6); HEMOGLOBIN 8.7 g/dL (14.0-18.0); LYMPHOCYTES # (AUTO) 1.4 (1.0-3.2); LYMPHOCYTES % 21.5 % (18.0-39.1); MEAN CORPUSCULAR HEMOGLOBIN 33.7 pg (28-32); MEAN CORPUSCULAR HGB CONC 34.9 g/dL (31-35); MEAN CORPUSCULAR VOLUME 96.5 fL (81-99); MONOCYTES # (AUTO) 0.6 (0.2-0.8); MONOCYTES % 8.7 % (4.4-11.3); NEUTROPHILS # (AUTO) 4.2 (2.1-6.9); NEUTROPHILS % 66.9 % (38.7-80.0); PLATELET COUNT 63 x10e3/uL (140-360); RED BLOOD COUNT 2.58 x10e6/uL (4.3-5.7); RED CELL DISTRIBUTION WIDTH 17.5 % (11.7-14.4)
[2019-02-23] MEDS ORDERED: MAGNESIUM/ALUMINUM/SIMETHICONE 30 ML UDC PO PRN (17:30)
--- NOTE | 2019-02-23 19:00 | NUR ---
Received bedside shift report from dayshift RN. Patient is in bed, set low, side rails up x2, with call light within reach. Bed alarm on. Patient is not in distress.
[2019-02-23] MEDS: ZOLPIDEM TARTRATE 5 MG TAB PO PRN (23:32)
[2019-02-24] VITALS: BP 118/67
[2019-02-24 04:00] VITALS: BP 114/67
--- NOTE | 2019-02-24 06:15 | NUR ---
Dr. Ingrid Smith is at bedside with the patient explaining he would like to do another US Guided Paracentesis diagnostically to analyze the fluid for further study. Ordered has been made.
--- NOTE | 2019-02-24 07:30 | NUR ---
REC'D PT AAOX3, PT LAYING IN SEMI-MAGANA'S POSITION, PT ON RA. NO S/S OF DISTRESS. BED IN LOWEST POSITION, SIDE RAILS UP X2, CALL PATHAK WITHIN REACH, AND BED IN LOWEST POSITION.
--- NOTE | 2019-02-24 07:45 | NUR ---
CONSENT FILLED OUT FOR ULTRASOUND GUIDED PARACENTESIS. PT PLACED NPO.
[2019-02-24 08:30] VITALS: BP 115/64
[2019-02-24] MEDS: FUROSEMIDE INJ 10 MG/ML 4 ML VIAL IV SCH (10:37)
[2019-02-24] MEDS: PANTOPRAZOLE 40 MG 10ML VIAL IV SCH (10:38)
[2019-02-24] MEDS: GABAPENTIN 300 MG CAP PO SCH (10:38)
[2019-02-24] MEDS: SPIRONOLACTONE 25 MG TAB PO SCH (10:38)
[2019-02-24 11:06] VITALS: BP 115/64
[2019-02-24 11:50] VITALS: BP 112/58
--- NOTE | 2019-02-24 14:10 | NUR ---
PT WENT DOWN FOR PARACENTESIS PROCEDURE. CONSENT SIGNED.
--- NOTE | 2019-02-24 15:15 | NUR ---
PT RETURNED FROM PARACENTESIS PROCEDURE. 5 L OF FLUID REMOVED. 1 BOTTLE SENT TO LAB FOR MICROBIOLOGY. VS ARE 128/82, HR 106, 97.0 F TEMP, AND O2 IS 97% RA.
[2019-02-24] MEDS ORDERED: LASIX40 MG PO (15:46)
--- NOTE | 2019-02-24 15:49 | Diagnostic Imaging Report ---
Date and Time: 02/24/2019 @ 2:36 PM Procedure: Ultrasound-guided paracentesis Pre-operative diagnosis: Cirrhosis, ascites Post-operative diagnosis: Cirrhosis, ascites Conscious Sedation: None The patient's heart rate and pulse oximetry were continuously monitored by the interventional radiology nurse. Blood pressure was monitored at 5 minute intervals. Additional Medications: Lidocaine 1% for local anesthesia Estimated blood loss: Minimal Blood products administered: None Complications: No immediate Specimens: 5,000 cc of greenish colored fluid Implants: None DISCUSSION: Informed consent was obtained and documented in the medical record. The patient was placed in the supine position and the right abdominal wall was prepped and draped in standard sterile fashion. A suitable percutaneous approach to the peritoneal space was identified and 1% lidocaine was infiltrated into the skin and subcutaneous tissues for local anesthesia. A 5 Maltese GiveLoop needle catheter was advanced into the ascitic fluid. The needle was removed and the catheter attached to vacuum bottle with subsequent evacuation of 5,000 cc greenish-colored fluid. The catheter was removed and a sterile dressing was applied. The patient tolerated the procedure well without immediate complication. The entire specimen was sent to the laboratory for analysis. FINDINGS: Moderate volume ascites. IMPRESSION: Successful ultrasound-guided paracentesis with evacuation of 5,000 cc greenish- colored fluid. Signed by: Dr. Sanjeev Boyd DO on 02/24/2019 3:46 PM
[2019-02-24] MEDS ORDERED: ALDACTONE25 MG PO (15:50)
[2019-02-24] MEDS ORDERED: PANTOPRAZOLE SO40 MG PO (15:50)
[2019-02-24 16:00] LABS: BODY FLUID APPEARANCE TURBID; BODY FLUID COLOR YELLOW; BODY FLUID TYPE PERITONEAL
[2019-02-24 16:10] LABS: RBC,BODY FLUID 66 cells/uL; WBC,BODY FLUID 122 cells/uL
--- NOTE | 2019-02-24 16:30 | NUR ---
PT IV REMOVED, NO COMPLICATIONS TO IV SITE. NO S/S OF DISTRESS. ASSISTED PT FROM BED TO WHEELCHAIR. TRANSFERRED DOWNSTAIRS AND INTO HIS 'S TRUCK.
[2019-02-24 16:36] VITALS: BP 125/71
[2019-02-24 18:23] LABS: LYMPHOCYTES,BODY FLUID 68 %; MONO/MACROPHG,BODY FLUID 25 %; OTHER CELLS,BODY FLUID 7 %
[2019-02-26 10:23] LABS: ALPHA-1-ANTITRYPSIN 163 mg/dL (90-200)
== END 2019-02-24 16:53 | disposition home or self-care (01) | DRG 434 ==
LOC: ER 15:27 → ERHOLD 20:47 → ER 21:23 → IMCU 21:52 → OBSVTOIN 02-22 10:54 → MED/SURG2 02-22 17:18
PROC: 0W9G3ZZ Drainage of Peritoneal Cavity, Percutaneous Approach (ICD-10-PCS; principal; 2019-02-22)
DX: K70.31 Alcoholic cirrhosis of liver with ascites (principal); D64.9 Anemia, unspecified; E11.9 Type 2 diabetes mellitus without complications; E87.6 Hypokalemia
CPT/HCPCS: 36415; 49083; 74470; 76700; 76705; 80048; 80053; 82103; 82105; 82390; 82525; 82550; 82553; 82607; 82728; 82746; 82948; 83540; 83880; 84466; 84484; 85025; 85045; 85610; 85730; 86039; 86255; 86850; 86900; 86920; 87070; 87205; 88112; 88305; 89051; 99284; G0378; J0696; J1940; J7050; P9016

== ENCOUNTER 2020-11-16 11:27 | Inpatient (IN) | payer MEDICARE ==
[~2020-11-16] VITALS: Ht 157.5 cm; Wt 87.3 kg
[~2020-11-16 11:27] MED LIST changes: +ALDACTONE25 MG PO; +GABAPENTIN300 MG PO; +LASIX40 MG PO; +PANTOPRAZOLE SO40 MG PO
[2020-11-16 11:57] LABS: BASOPHILS % 0.9 % (0.0-1.0); EOSINOPHILS # (AUTO) 0.1 (0.0-0.4); EOSINOPHILS % 1.2 % (0.0-6.0); LYMPHOCYTES # (AUTO) 1.6 (1.0-3.2); LYMPHOCYTES % 36.5 % (18.0-39.1); MEAN CORPUSCULAR HEMOGLOBIN 32.6 pg (28-32); MEAN CORPUSCULAR HGB CONC 32.6 g/dL (31-35); MONOCYTES # (AUTO) 0.4 (0.2-0.8); MONOCYTES % 9.6 % (4.4-11.3); NEUTROPHILS # (AUTO) 2.2 (2.1-6.9); NEUTROPHILS % 51.1 % (38.7-80.0); PLATELET COUNT 66 x10e3/uL (140-360); RED BLOOD COUNT 1.72 x10e6/uL (4.3-5.7); RED CELL DISTRIBUTION WIDTH 16.9 % (11.7-14.4)
[2020-11-16 12:00] LABS: HEMATOCRIT 17.2 % (38.2-49.6); HEMOGLOBIN 5.6 g/dL (14.0-18.0)
[2020-11-16] MEDS ORDERED: FAMOTIDINE 20 MG/2 ML VIAL IV NR (12:00)
[2020-11-16] MEDS ORDERED: SODIUM CHLORIDE 0.9% 250ML 250 ML IV ONE (12:00)
[2020-11-16 12:01] LABS: INR 1.26; PROTHROMBIN TIME 16.7 seconds (11.9-14.5)
[2020-11-16 12:02] LABS: PARTIAL THROMBOPLASTIN TIME 43.2 seconds (23.8-35.5)
[2020-11-16 12:12] LABS: ALANINE AMINOTRANSFERASE 8 IU/L (0-55); ALBUMIN 1.8 g/dL (3.5-5.0); ALBUMIN/GLOBULIN RATIO 0.3 (0.8-2.0); ALKALINE PHOSPHATASE 147 IU/L (40-150); ANION GAP 13.8 mmol/L (8-16); BLOOD UREA NITROGEN 5 mg/dL (7-26); BUN/CREATININE RATIO 7 (6-25); CALCIUM 7.3 mg/dL (8.4-10.2); CARBON DIOXIDE 20 mmol/L (22-29); CHLORIDE 98 mmol/L (98-107); CREATINE KINASE 38 IU/L (30-200); CREATININE, SERUM 0.67 mg/dL (0.72-1.25); EST GLOMERULAR FILTRATION RATE > 60 ML/MIN (60-); GLUCOSE 76 mg/dL (74-118); MAGNESIUM 1.2 MG/DL (1.3-2.1); SODIUM 129 mmol/L (136-145)
[2020-11-16 12:15] LABS: POTASSIUM 2.8 mmol/L (3.5-5.1)
[2020-11-16] MEDS ORDERED: OCTREOTIDE ACETATE 0.05 MG/ML AMP IV STA (12:23)
[2020-11-16] MEDS ORDERED: POTASSIUM CHLORIDE 10MEQ/100ML 200 ML IV ONE (12:30)
[2020-11-16] MEDS ORDERED: MAGNESIUM SULFATE 2GM/50ML 50 ML IV ONE (12:30)
[2020-11-16] MEDS: FUROSEMIDE INJ 10 MG/ML 2 ML VIAL IV PRN (12:34)
[2020-11-16] MEDS ORDERED: POTASSIUM CHLORIDE 20 MEQ TAB CR PO NR (12:45)
[2020-11-16] MEDS ORDERED: PHYTONADIONE 10 MG/ML AMP PO ONE (12:45)
[2020-11-16] MEDS: OCTREOTIDE ACETATE 500 MCG in SODIUM CHLORIDE 0.9% 250ML 250 ML IV SCH ×2 (12:56→22:30)
[2020-11-16 13:03] LABS: B-TYPE NATRIURETIC PEPTIDE2 219.9 pg/mL (0-100)
[2020-11-16 15:05] VITALS: BP 152/82
[2020-11-16] MEDS ORDERED: DEXTROSE 50% SYRINGE 50 ML IV PRN (15:15)
[2020-11-16 16:04] VITALS: BP 152/82
[2020-11-16] MEDS: FAMOTIDINE 20 MG/2 ML VIAL IV SCH (16:09)
[2020-11-16 16:26] VITALS: BP 152/82
[2020-11-16] MEDS ORDERED: SODIUM CHLORIDE 0.9% 250ML 250 ML ONE ×2 (17:24→21:47)
[2020-11-16 20:00] VITALS: BP 155/72
[2020-11-16] MEDS: PANTOPRAZOLE 40 MG 10ML VIAL IV SCH (20:52)
[2020-11-16 21:00] VITALS: BP 155/72
[2020-11-17] VITALS (10 sets, daily range): BP systolic 119–183; BP diastolic 62–95
[2020-11-17] MEDS ORDERED: PHYTONADIONE 10 MG/ML AMP IV ONE ×3 (01:30→22:45)
[2020-11-17] MEDS ORDERED: SODIUM CHLORIDE 0.9% 100 ML ONE (01:51)
[2020-11-17] MEDS ORDERED: OCTREOTIDE ACETATE 1 ML ONE (03:10)
[2020-11-17] MEDS ORDERED: SODIUM CHLORIDE 0.9% 250ML 250 ML ONE ×2 (03:11→23:12)
[2020-11-17] MEDS: OCTREOTIDE ACETATE 500 MCG in SODIUM CHLORIDE 0.9% 250ML 250 ML IV SCH ×2 (05:42→18:05)
[2020-11-17 06:49] LABS: BASOPHILS % 0.9 % (0.0-1.0); EOSINOPHILS % 0.9 % (0.0-6.0); LYMPHOCYTES # (AUTO) 0.6 (1.0-3.2); LYMPHOCYTES % 16.9 % (18.0-39.1); MEAN CORPUSCULAR HEMOGLOBIN 34.4 pg (28-32); MEAN CORPUSCULAR HGB CONC 34.5 g/dL (31-35); MEAN CORPUSCULAR VOLUME 99.5 fL (81-99); MONOCYTES # (AUTO) 0.4 (0.2-0.8); MONOCYTES % 12.2 % (4.4-11.3); NEUTROPHILS # (AUTO) 2.3 (2.1-6.9); NEUTROPHILS % 68.2 % (38.7-80.0); PLATELET COUNT 74 x10e3/uL (140-360); RED BLOOD COUNT 1.95 x10e6/uL (4.3-5.7); RED CELL DISTRIBUTION WIDTH 17.4 % (11.7-14.4)
[2020-11-17 07:21] LABS: HEMOGLOBIN 6.7 g/dL (14.0-18.0)
[2020-11-17 07:22] LABS: HEMATOCRIT 19.4 % (38.2-49.6)
[2020-11-17 07:33] LABS: ALANINE AMINOTRANSFERASE 7 IU/L (0-55); ALBUMIN 1.6 g/dL (3.5-5.0); ALBUMIN/GLOBULIN RATIO 0.3 (0.8-2.0); ALKALINE PHOSPHATASE 127 IU/L (40-150); ANION GAP 11.3 mmol/L (8-16); BLOOD UREA NITROGEN < 5 mg/dL (7-26); CALCIUM 7.2 mg/dL (8.4-10.2); CARBON DIOXIDE 22 mmol/L (22-29); CHLORIDE 102 mmol/L (98-107); CREATININE, SERUM 0.73 mg/dL (0.72-1.25); EST GLOMERULAR FILTRATION RATE > 60 ML/MIN (60-); GLUCOSE 177 mg/dL (74-118); POTASSIUM 3.3 mmol/L (3.5-5.1); SODIUM 132 mmol/L (136-145)
[2020-11-17] MEDS ORDERED: SODIUM CHLORIDE 0.9% 250ML 250 ML IV ONE (07:45)
[2020-11-17 07:50] LABS: BUN/CREATININE RATIO 7 (6-25)
[2020-11-17 07:58] LABS: CREATINE KINASE MB 2.2 ng/mL (0-5.0)
[2020-11-17] MEDS ORDERED: SODIUM CHLORIDE 0.9% 50ML 50 ML ONE ×2 (08:04→23:07)
[2020-11-17] MEDS ORDERED: IOPAMIDOL 370 MG/ML 200 ML INFUS..BTL INJ ONE (08:05)
[2020-11-17] MEDS: FUROSEMIDE 40 MG TAB PO SCH (09:00)
[2020-11-17] MEDS: SPIRONOLACTONE 25 MG TAB PO SCH (09:00)
[2020-11-17] MEDS: FAMOTIDINE 20 MG/2 ML VIAL IV SCH ×2 (09:00→16:20)
[2020-11-17] MEDS: GABAPENTIN 300 MG CAP PO SCH ×3 (09:00→21:26)
[2020-11-17] MEDS: PANTOPRAZOLE 40 MG 10ML VIAL IV SCH ×2 (09:00→21:26)
[2020-11-17] MEDS ORDERED: PROPRANOLOL HCL 10 MG TAB PO SCH (09:00)
[2020-11-17] MEDS: MULTIVITAMINS- 12 INJECTION 10 ML, FOLIC ACID MDV 5 MG, THIAMINE HCL INJ 100 MG in SODI... IV SCH ×2 (09:40→23:23)
[2020-11-17] MEDS: FUROSEMIDE INJ 10 MG/ML 2 ML VIAL IV PRN (13:00)
[2020-11-17 18:10] LABS: HEMATOCRIT 25.2 % (38.2-49.6); HEMOGLOBIN 8.5 g/dL (14.0-18.0)
[2020-11-17 18:36] LABS: CREATINE KINASE MB 1.3 ng/mL (0-5.0)
[2020-11-17] MEDS ORDERED: POTASSIUM CHLORIDE 20 MEQ TAB CR PO STA (19:57)
[2020-11-17] MEDS ORDERED: HYDRALAZINE HCL 20 MG/ML VIAL IV STA (21:14)
[2020-11-18] VITALS (8 sets, daily range): BP systolic 154–174; BP diastolic 74–98
[2020-11-18] MEDS ORDERED: HYDRALAZINE HCL 20 MG/ML VIAL IV PRN (04:15)
[2020-11-18 04:58] LABS: BASOPHILS % 0.7 % (0.0-1.0); EOSINOPHILS # (AUTO) 0.1 (0.0-0.4); EOSINOPHILS % 1.1 % (0.0-6.0); HEMATOCRIT 22.5 % (38.2-49.6); HEMOGLOBIN 7.6 g/dL (14.0-18.0); LYMPHOCYTES # (AUTO) 1.3 (1.0-3.2); LYMPHOCYTES % 28.8 % (18.0-39.1); MEAN CORPUSCULAR HEMOGLOBIN 31.9 pg (28-32); MEAN CORPUSCULAR HGB CONC 33.8 g/dL (31-35); MEAN CORPUSCULAR VOLUME 94.5 fL (81-99); MONOCYTES # (AUTO) 0.5 (0.2-0.8); MONOCYTES % 11.2 % (4.4-11.3); NEUTROPHILS # (AUTO) 2.6 (2.1-6.9); PLATELET COUNT 70 x10e3/uL (140-360); RED BLOOD COUNT 2.38 x10e6/uL (4.3-5.7); RED CELL DISTRIBUTION WIDTH 17.8 % (11.7-14.4)
[2020-11-18 05:23] LABS: INR 1.37; PROTHROMBIN TIME 17.8 seconds (11.9-14.5)
[2020-11-18] MEDS: OCTREOTIDE ACETATE 500 MCG in SODIUM CHLORIDE 0.9% 250ML 250 ML IV SCH ×2 (05:32→14:30)
[2020-11-18 05:44] LABS: ALANINE AMINOTRANSFERASE 7 IU/L (0-55); ALBUMIN 1.6 g/dL (3.5-5.0); ALBUMIN/GLOBULIN RATIO 0.3 (0.8-2.0); ALKALINE PHOSPHATASE 125 IU/L (40-150); ANION GAP 9.9 mmol/L (8-16); BLOOD UREA NITROGEN 6 mg/dL (7-26); BUN/CREATININE RATIO 8 (6-25); CALCIUM 7.3 mg/dL (8.4-10.2); CARBON DIOXIDE 29 mmol/L (22-29); CHLORIDE 99 mmol/L (98-107); CREATININE, SERUM 0.79 mg/dL (0.72-1.25); EST GLOMERULAR FILTRATION RATE > 60 ML/MIN (60-); GLUCOSE 141 mg/dL (74-118); SODIUM 135 mmol/L (136-145)
[2020-11-18 05:46] LABS: POTASSIUM 2.9 mmol/L (3.5-5.1)
[2020-11-18] MEDS ORDERED: POTASSIUM CHLORIDE 20 MEQ TAB CR PO STA (05:53)
[2020-11-18] MEDS: GABAPENTIN 300 MG CAP PO SCH ×3 (08:40→20:52)
[2020-11-18] MEDS: FUROSEMIDE 40 MG TAB PO SCH (08:40)
[2020-11-18] MEDS: SPIRONOLACTONE 25 MG TAB PO SCH (08:40)
[2020-11-18] MEDS: FAMOTIDINE 20 MG/2 ML VIAL IV SCH ×2 (08:40→18:17)
[2020-11-18] MEDS: PANTOPRAZOLE 40 MG 10ML VIAL IV SCH ×2 (08:40→20:52)
[2020-11-18] MEDS ORDERED: MIDAZOLAM HCL 2 MG/2 ML VIAL ONE (13:40)
[2020-11-18] MEDS ORDERED: FENTANYL CITRATE/PF 100MCG/2 ML INJ ONE (13:40)
[2020-11-18 15:59] LABS: RBC,BODY FLUID 1376 cells/uL; WBC,BODY FLUID 25 cells/uL
[2020-11-18 16:08] LABS: BODY FLUID TYPE PERITONEAL
[2020-11-18 16:09] LABS: BODY FLUID APPEARANCE TURBID; BODY FLUID COLOR STRAW
[2020-11-18 17:23] LABS: BASOPHILS,BODY FLUID 2 %; EOSINOPHILS,BODY FLUID 1 %; LYMPHOCYTES,BODY FLUID 65 %; MONO/MACROPHG,BODY FLUID 11 %; NEUTROPHILS,BODY FLUID 13 %; OTHER CELLS,BODY FLUID 8 %
[2020-11-18] MEDS: MULTIVITAMINS- 12 INJECTION 10 ML, FOLIC ACID MDV 5 MG, THIAMINE HCL INJ 100 MG in SODI... IV SCH (21:06)
[2020-11-19] VITALS (13 sets, daily range): BP systolic 126–172; BP diastolic 67–102
[2020-11-19] MEDS: OCTREOTIDE ACETATE 500 MCG in SODIUM CHLORIDE 0.9% 250ML 250 ML IV SCH ×3 (02:08→22:35)
[2020-11-19 05:32] LABS: BASOPHILS % 0.6 % (0.0-1.0); EOSINOPHILS # (AUTO) 0.1 (0.0-0.4); EOSINOPHILS % 1.1 % (0.0-6.0); HEMATOCRIT 24.5 % (38.2-49.6); HEMOGLOBIN 8.5 g/dL (14.0-18.0); LYMPHOCYTES # (AUTO) 1.5 (1.0-3.2); MEAN CORPUSCULAR HEMOGLOBIN 34.4 pg (28-32); MEAN CORPUSCULAR HGB CONC 34.7 g/dL (31-35); MEAN CORPUSCULAR VOLUME 99.2 fL (81-99); MONOCYTES # (AUTO) 0.5 (0.2-0.8); MONOCYTES % 11.3 % (4.4-11.3); NEUTROPHILS # (AUTO) 2.6 (2.1-6.9); NEUTROPHILS % 55.6 % (38.7-80.0); PLATELET COUNT 51 x10e3/uL (140-360); RED BLOOD COUNT 2.47 x10e6/uL (4.3-5.7); RED CELL DISTRIBUTION WIDTH 18.6 % (11.7-14.4)
[2020-11-19 06:27] LABS: ALBUMIN 1.7 g/dL (3.5-5.0); ALBUMIN/GLOBULIN RATIO 0.4 (0.8-2.0); ALKALINE PHOSPHATASE 117 IU/L (40-150); ANION GAP 9.3 mmol/L (8-16); BLOOD UREA NITROGEN 8 mg/dL (7-26); BUN/CREATININE RATIO 8 (6-25); CALCIUM 7.3 mg/dL (8.4-10.2); CARBON DIOXIDE 31 mmol/L (22-29); CHLORIDE 99 mmol/L (98-107); CREATININE, SERUM 1.06 mg/dL (0.72-1.25); EST GLOMERULAR FILTRATION RATE > 60 ML/MIN (60-); GLUCOSE 115 mg/dL (74-118); POTASSIUM 3.3 mmol/L (3.5-5.1); SODIUM 136 mmol/L (136-145)
[2020-11-19 06:55] LABS: ALANINE AMINOTRANSFERASE < 6 IU/L (0-55)
[2020-11-19] MEDS ORDERED: MAGNESIUM SULFATE 2GM/50ML 50 ML IV ONE (07:30)
[2020-11-19] MEDS: PANTOPRAZOLE 40 MG 10ML VIAL IV SCH ×2 (09:00→20:43)
[2020-11-19] MEDS: FAMOTIDINE 20 MG/2 ML VIAL IV SCH ×2 (09:00→16:45)
[2020-11-19] MEDS: GABAPENTIN 300 MG CAP PO SCH ×3 (09:01→20:43)
[2020-11-19] MEDS: FUROSEMIDE 40 MG TAB PO SCH (09:01)
[2020-11-19] MEDS: SPIRONOLACTONE 25 MG TAB PO SCH ×2 (09:01→20:05)
[2020-11-19] MEDS ORDERED: POTASSIUM CHLORIDE 10MEQ EA PO ONE (09:15)
[2020-11-19] MEDS: MULTIVITAMINS- 12 INJECTION 10 ML, FOLIC ACID MDV 5 MG, THIAMINE HCL INJ 100 MG in SODI... IV SCH (17:42)
[2020-11-20 05:25] VITALS: BP 144/92
[2020-11-20 05:56] LABS: BASOPHILS % 0.5 % (0.0-1.0); EOSINOPHILS # (AUTO) 0.1 (0.0-0.4); EOSINOPHILS % 1.2 % (0.0-6.0); HEMATOCRIT 24.7 % (38.2-49.6); HEMOGLOBIN 8.5 g/dL (14.0-18.0); LYMPHOCYTES # (AUTO) 1.9 (1.0-3.2); MEAN CORPUSCULAR HEMOGLOBIN 33.9 pg (28-32); MEAN CORPUSCULAR HGB CONC 34.4 g/dL (31-35); MEAN CORPUSCULAR VOLUME 98.4 fL (81-99); MONOCYTES # (AUTO) 0.6 (0.2-0.8); MONOCYTES % 9.7 % (4.4-11.3); NEUTROPHILS # (AUTO) 3.4 (2.1-6.9); NEUTROPHILS % 56.1 % (38.7-80.0); PLATELET COUNT 56 x10e3/uL (140-360); RED BLOOD COUNT 2.51 x10e6/uL (4.3-5.7)
[2020-11-20 06:38] LABS: ALBUMIN 1.8 g/dL (3.5-5.0); ALBUMIN/GLOBULIN RATIO 0.4 (0.8-2.0); ALKALINE PHOSPHATASE 118 IU/L (40-150); ANION GAP 12.7 mmol/L (8-16); BLOOD UREA NITROGEN 13 mg/dL (7-26); BUN/CREATININE RATIO 11 (6-25); CALCIUM 7.6 mg/dL (8.4-10.2); CARBON DIOXIDE 29 mmol/L (22-29); CHLORIDE 98 mmol/L (98-107); CREATININE, SERUM 1.17 mg/dL (0.72-1.25); EST GLOMERULAR FILTRATION RATE > 60 ML/MIN (60-); GLUCOSE 125 mg/dL (74-118); POTASSIUM 3.7 mmol/L (3.5-5.1); SODIUM 136 mmol/L (136-145)
[2020-11-20 06:57] LABS: ALANINE AMINOTRANSFERASE < 6 IU/L (0-55)
[2020-11-20 06:59] LABS: MAGNESIUM 1.1 MG/DL (1.3-2.1)
[2020-11-20 07:19] LABS: FERRITIN 408.79 ng/mL (21.81-274.66)
[2020-11-20 07:35] VITALS: BP 172/84
[2020-11-20] MEDS ORDERED: MAGNESIUM SULFATE 2GM/50ML 50 ML IV ONE (07:45)
[2020-11-20 07:59] VITALS: BP 172/84
[2020-11-20] MEDS: PANTOPRAZOLE 40 MG 10ML VIAL IV SCH ×2 (09:53→20:32)
[2020-11-20] MEDS: FUROSEMIDE 40 MG TAB PO SCH (09:53)
[2020-11-20] MEDS: GABAPENTIN 300 MG CAP PO SCH ×3 (09:53→20:32)
[2020-11-20] MEDS: OCTREOTIDE ACETATE 500 MCG in SODIUM CHLORIDE 0.9% 250ML 250 ML IV SCH ×2 (09:53→20:30)
[2020-11-20] MEDS: FAMOTIDINE 20 MG/2 ML VIAL IV SCH ×2 (09:53→16:50)
[2020-11-20] MEDS: SPIRONOLACTONE 25 MG TAB PO SCH ×2 (09:53→16:50)
[2020-11-20 11:02] VITALS: BP 136/84
[2020-11-20] MEDS: MULTIVITAMINS- 12 INJECTION 10 ML, FOLIC ACID MDV 5 MG, THIAMINE HCL INJ 100 MG in SODI... IV SCH (14:47)
[2020-11-20 20:00] VITALS: BP 140/101
[2020-11-21] VITALS (8 sets, daily range): BP systolic 133–155; BP diastolic 75–94
[2020-11-21] MEDS: OCTREOTIDE ACETATE 500 MCG in SODIUM CHLORIDE 0.9% 250ML 250 ML IV SCH ×2 (02:30→17:23)
[2020-11-21 05:24] LABS: BASOPHILS % 0.8 % (0.0-1.0); EOSINOPHILS # (AUTO) 0.1 (0.0-0.4); EOSINOPHILS % 1.2 % (0.0-6.0); HEMATOCRIT 23.3 % (38.2-49.6); HEMOGLOBIN 7.8 g/dL (14.0-18.0); LYMPHOCYTES # (AUTO) 1.5 (1.0-3.2); LYMPHOCYTES % 29.9 % (18.0-39.1); MEAN CORPUSCULAR HEMOGLOBIN 33.1 pg (28-32); MEAN CORPUSCULAR HGB CONC 33.5 g/dL (31-35); MEAN CORPUSCULAR VOLUME 98.7 fL (81-99); MONOCYTES # (AUTO) 0.7 (0.2-0.8); MONOCYTES % 14.5 % (4.4-11.3); NEUTROPHILS # (AUTO) 2.6 (2.1-6.9); NEUTROPHILS % 52.8 % (38.7-80.0); PLATELET COUNT 72 x10e3/uL (140-360); RED BLOOD COUNT 2.36 x10e6/uL (4.3-5.7); RED CELL DISTRIBUTION WIDTH 18.5 % (11.7-14.4)
[2020-11-21 05:51] LABS: ALBUMIN 1.6 g/dL (3.5-5.0); ALBUMIN/GLOBULIN RATIO 0.4 (0.8-2.0); ALKALINE PHOSPHATASE 100 IU/L (40-150); BLOOD UREA NITROGEN 16 mg/dL (7-26); BUN/CREATININE RATIO 14 (6-25); CALCIUM 7.6 mg/dL (8.4-10.2); CARBON DIOXIDE 29 mmol/L (22-29); CHLORIDE 100 mmol/L (98-107); CREATININE, SERUM 1.12 mg/dL (0.72-1.25); EST GLOMERULAR FILTRATION RATE > 60 ML/MIN (60-); GLUCOSE 139 mg/dL (74-118); MAGNESIUM 1.4 MG/DL (1.3-2.1); SODIUM 136 mmol/L (136-145)
[2020-11-21 07:02] LABS: ALANINE AMINOTRANSFERASE < 6 IU/L (0-55)
[2020-11-21] MEDS ORDERED: IRON SUCROSE 100 MG in SODIUM CHLORIDE 0.9% 100 ML 100 ML IV SCH (09:00)
[2020-11-21] MEDS ORDERED: CYANOCOBALAMIN INJ 1,000 MCG/ML VIAL IM SCH (09:00)
[2020-11-21] MEDS: FUROSEMIDE 40 MG TAB PO SCH (09:03)
[2020-11-21] MEDS: PANTOPRAZOLE 40 MG 10ML VIAL IV SCH (09:03)
[2020-11-21] MEDS: SPIRONOLACTONE 25 MG TAB PO SCH ×2 (09:03→17:22)
[2020-11-21] MEDS: FAMOTIDINE 20 MG/2 ML VIAL IV SCH ×2 (09:03→17:22)
[2020-11-21] MEDS: GABAPENTIN 300 MG CAP PO SCH ×2 (09:03→17:22)
[2020-11-21] MEDS: MULTIVITAMINS- 12 INJECTION 10 ML, FOLIC ACID MDV 5 MG, THIAMINE HCL INJ 100 MG in SODI... IV SCH (11:35)
== END 2020-11-21 19:48 | disposition home or self-care (01) | DRG 432 ==
LOC: ER 11:48 → ERHOLD 12:44 → MED/SURG2 14:34
PROVIDERS: ADMIT Family Medicine; ATTEND Family Medicine
PROC: 30233N1 Transfusion of Nonautologous Red Blood Cells into Peripheral Vein, Percutaneous Approach (ICD-10-PCS; 2020-11-16)
PROC: 0DB68ZX Excision of Stomach, Via Natural or Artificial Opening Endoscopic, Diagnostic (ICD-10-PCS; 2020-11-18)
PROC: 0W9G3ZZ Drainage of Peritoneal Cavity, Percutaneous Approach (ICD-10-PCS; 2020-11-18)
PROC: 0DB98ZX Excision of Duodenum, Via Natural or Artificial Opening Endoscopic, Diagnostic (ICD-10-PCS; principal; 2020-11-18 14:30)
DX: K70.31 Alcoholic cirrhosis of liver with ascites (principal); I85.11 Secondary esophageal varices with bleeding; K76.6 Portal hypertension; D62 Acute posthemorrhagic anemia; D61.818 Other pancytopenia; E44.0 Moderate protein-calorie malnutrition; I10 Essential (primary) hypertension; E11.9 Type 2 diabetes mellitus without complications; E83.42 Hypomagnesemia; E87.6 Hypokalemia; Z82.49 Family history of ischemic heart disease and other diseases of the circulatory system; Z87.891 Personal history of nicotine dependence; E66.01 Morbid (severe) obesity due to excess calories; Z68.35 Body mass index [BMI] 35.0-35.9, adult; K29.70 Gastritis, unspecified, without bleeding; K44.9 Diaphragmatic hernia without obstruction or gangrene; I51.7 Cardiomegaly; D50.9 Iron deficiency anemia, unspecified; E80.6 Other disorders of bilirubin metabolism; Z20.822 Contact with and (suspected) exposure to COVID-19
CPT/HCPCS: 36415; 43239; 49083; 71045; 71260; 74470; 76700; 80053; 82140; 82550; 82553; 82607; 82728; 82746; 82948; 83540; 83735; 83880; 84466; 84484; 85014; 85018; 85025; 85045; 85610; 85730; 86850; 86900; 86920; 87070; 87205; 88112; 88305; 88312; 89051; 93005; 93970; 99251; 99284; C1729; J0360; J1756; J1940; J2250; J2353; J2354; J3010; J3411; J3430; J3475; J3480; J7030; J7050; J7799; P9016; Q9967; U0002